=== PATIENT | female | born 1985 | race Caucasian/White ===

== ENCOUNTER 2018-04-01 08:45 | Inpatient (IN) | payer OTHER ==
[2018-04-01 10:16] VITALS: BMI 30.4
--- NOTE | 2018-04-01 11:41 | HP ---
CIWA Score - CIWA Score Nausea/Vomitin Muscle Tremors: 3 Anxiety: 3 Agitation: 2 Paroxysmal Sweats: 1-Minimal Palms Moist Orientation: 0-Oriented Tacttile Disturbances: 1-Very Mild Itch/Numbness Auditory Disturbances: 1-Very Mild Visual Disturbances: 1-Very Mild Sensitivity Headache: 2-Mild CIWA-Ar Total Score: 17 Admission ROS BHS - HPI Chief Complaint: i need help to stop drinking alcohol,marijuana Allergies/Adverse Reactions: Allergies Allergy/AdvReac Type Severity Reaction Status Date / Time No Known Allergies Allergy Verified 04/01/18 10:37 History of Present Illness: this 32 years old female with alcohol and marijuana dependence seeking detox, withdrawal symptom,last detox 3 years go in [place] ss/p mitral valve replacement in 2015 s/p left nephrectomy for kidney stone and infection in 2009 lacerations of right forearm seen in [facility] 1 weks ago seen in [place] today with incted left forearm with cellulitis started on keflex hepatitis c no treatment no significant period of sobriety Exam Limitations: No Limitations - Ebola screening Have you traveled outside of the country in the last 21 days: No Have you had contact with anyone from an Ebola affected area: No Have you been sick,other than usual withdrawal symptoms: No Do you have a fever: No - Review of Systems Constitutional: Loss of Appetite, Malaise, Night Sweats, Changes in sleep, Weakness EENT: reports: Nose Congestion Respiratory: reports: No Symptoms reported Cardiac: reports: Palpitations, Other (s/p mitrl valve replacement) GI: reports: Diarrhea, Nausea, Vomiting, Abdominal cramping : reports: No Symptoms Reported Musculoskeletal: reports: Back Pain, Muscle Pain Integumentary: reports: Dryness Neuro: reports: Headache, Tremors Endocrine: reports: No Symptoms Reported Hematology: reports: No Symptoms Reported Psychiatric: reports: No Sypmtoms Reported, Judgement Intact, Mood/Affect Appropiate, Orientated x3 (insomnia), Anxious, Depressed Patient History - Patient Medical History Hx Anemia: No Hx Asthma: No Hx Chronic Obstructive Pulmonary Disease (COPD): No Hx Cancer: No Hx Cardiac Disorders: No Hx Congestive Heart Failure: No Hx Hypertension: No Hx Hypercholesterolemia: No Hx Pacemaker: No HX Cerebrovascular Accident: No Hx Seizures: No Hx Dementia: No Hx Diabetes: No Hx Gastrointestinal Disorders: No Hx Liver Disease: No Hx Genitourinary Disorders: No Hx Sexually Transmitted Disorders: No Hx Renal Disease (ESRD): No Hx Thyroid Disease: No Hx Human Immunodeficiency Virus (HIV): No (2017 negative) Hx Hepatitis C: Yes (not treated) Hx Depression: Yes Hx Suicide Attempt: No Hx Bipolar Disorder: No Hx Schizophrenia: No Other Medical History: anxiety,insomnia,infected laceration of right forearm - Patient Surgical History Past Surgical History: Yes Hx Neurologic Surgery: No Hx Cataract Extraction: No Hx Cardiac Surgery: Yes (mitral valve replacement in 2016) Hx Lung Surgery: No Hx Breast Surgery: No Hx Breast Biopsy: No Hx Abdominal Surgery: No Hx Appendectomy: No Hx Cholecystectomy: No Hx Genitourinary Surgery: No Hx Section: No Hx Orthopedic Surgery: No Other Surgical History: sutured ound, right forearm x1 week/left nephrectomy in 2009 Anesthesia Reaction: No - PPD History Previous Implant?: Yes Documented Results: Negative w/o proof Implanted On Prior [facility] Admission?: No PPD to be Administered?: Yes - Smoking Cessation Smoking history: Current every day smoker Have you smoked in the past 12 months: Yes Aproximately how many cigarettes per day: 40 Hx Chewing Tobacco Use: No Initiated information on smoking cessation: Yes 'Breaking Loose' booklet given: 04/01/18 - Substances Abused Alcohol-whisky/been Route: Oral Frequency: Daily Amount used: 2-3 pts./2-6 pks. Age of first use: 12 Date of Last Use: 03/31/18 Marijuana Route: Smoking Frequency: Daily Amount used: $10 Age of first use: 12 Date of Last Use: 03/30/18 Family Disease History - Family Disease History Family Disease History: Other: Mother (dsa ) Admission Physical Exam S - Vital Signs Vital Signs: Vital Signs - 24 hr 04/01/18 10:03 Temperature 98.2 F Pulse Rate 99 H Respiratory 18 Rate Blood Pressure 144/95 - Physical General Appearance: Yes: Moderate Distress, Tremorous, Irritable, Sweating, Anxious HEENTM: Yes: Normal ENT Inspection, SARAH, Pharynx Normal Respiratory: Yes: Lungs Clear, Normal Breath Sounds, No Respiratory Distress Neck: Yes: Within Normal Limits, Supple, Trachea in good position Breast: Yes: Breast Exam Deferred Cardiology: Yes: Within Normal Limits, Regular Rhythm, Regular Rate, S1, S2, Surgical Scar (s/p enrike valve replacement) Abdominal: Yes: Normal Bowel Sounds, Non Tender, Flat, Soft, Organomegaly Genitourinary: Yes: Within Normal Limits, Other (s/p left nephrectomy) Back: Yes: Muscle Spasm Musculoskeletal: Yes: Within Normal Limits, Back pain, Muscle Pain Extremities: Yes: Tremors Neurological: Yes: twister tender paper II-XII NML intact, Fully Oriented, Alert, Motor Strength 5/5 Integumentary: Yes: Dry Lymphatic: Yes: Within Normal Limits - Diagnostic (1) Alcohol dependence with uncomplicated withdrawal Current Visit: Yes Status: Acute (2) Cannabis dependence Current Visit: Yes Status: Acute (3) H/O mitral valve replacement Current Visit: Yes Status: Acute (4) History of nephrectomy, unilateral Current Visit: Yes Status: Acute (5) Laceration of left forearm Current Visit: Yes Status: Acute (6) Cellulitis Current Visit: Yes Status: Acute (7) Hepatitis C Current Visit: Yes Status: Acute (8) Nicotine dependence Current Visit: Yes Status: Acute (9) Anxiety and depression Current Visit: Yes Status: Acute (10) Insomnia Current Visit: Yes Status: Acute Cleared for Admission [facility] - Detox or Rehab [facility] Level of Care: Medically Managed Detox Regimen/Protocol: Valium [facility] Breath Alcohol Content Breath Alcohol Content: 0 Urine Pregancy Test - Result Urine Test Results: Negative- NO Line Present Urine Drug Screen - Results Drug Screen Negative: No Urine Drug Screen Results: THC-Marijuana, BZO-Benzodiazepines
[2018-04-01] MEDS ORDERED: IBUPROFEN 400 MG TABLET (FP) PO PRN (12:02)
[2018-04-01] MEDS ORDERED: ACETAMINOPHEN 325 MG TABLET (FP) PO PRN (12:02)
[2018-04-01] MEDS ORDERED: guaiFENesin/D-METHORPHAN HB 10 ML UNIT-DOSE CUPS PO PRN (12:02)
[2018-04-01] MEDS ORDERED: MENTHOL/PHENOL 1 EACH UD MM PRN (12:02)
[2018-04-01] MEDS ORDERED: LOPERAMIDE HCL 2 MG CAPSULE PO PRN (12:02)
[2018-04-01] MEDS ORDERED: P-EPHED 60MG/TRIPROLIDI 2.5MG TABLET PO PRN (12:02)
[2018-04-01] MEDS ORDERED: MAG HYDROX/AL HYDROX/SIMETH 30 ML UNIT-DOSE CUP PO PRN (12:02)
[2018-04-01] MEDS ORDERED: NICOTINE POLACRILEX 2 MG GUM BUC PRN (12:02)
[2018-04-01] MEDS ORDERED: MAGNESIUM HYDROX 2400MG/30ML ORAL SUSPENSION 30 ML CUP PO PRN (12:02)
[2018-04-01] MEDS ORDERED: MAGNESIUM CITRATE 300 ML BOTTLE PO PRN (12:02)
[2018-04-01] MEDS ORDERED: diazePAM 5 MG TABLET PO ONE (12:30)
[2018-04-01] MEDS: NICOTINE 21 MG/24 HOURS TOPICAL PATCH TD SCH (12:37)
[2018-04-01] MEDS ORDERED: NAPROXEN 500 MG TABLET (FP) PO ONE (13:30)
[2018-04-01] MEDS: CEPHALEXIN MONOHYDRATE 500 MG CAPSULE (UD) PO SCH ×3 (13:39→22:04)
[2018-04-01] MEDS: diazePAM 5 MG TABLET PO SCH ×2 (13:39→22:04)
[2018-04-01 17:20] LABS: URINE APPEARANCE SLCLOUDY; URINE BILIRUBIN NEGATIVE (<2.0 mg/dL); URINE COLOR AMBER; URINE GLUCOSE (UA) NEGATIVE (NEGATIVE); URINE KETONE NEGATIVE (NEGATIVE); URINE LEUK ESTERASE NEGATIVE (NEGATIVE); URINE NITRITE NEGATIVE (NEGATIVE); URINE PROTEIN 3+ (NEGATIVE); URINE UROBILINOGEN 4.0 E.U/dl mg/dL (0.2-1.0)
[2018-04-01 17:31] LABS: EPI CELLS MODERATE /HPF (FEW)
[2018-04-01 17:52] LABS: INR 1.39 (0.83-1.09); PROTHROMBIN TIME (PATIENT) 16.5 SEC (9.7-13.0)
[2018-04-01] MEDS: diazePAM 5 MG TABLET PO PRN (18:11)
[2018-04-01] MEDS ORDERED: MELATONIN 5 MG TABLETS PO PRN (22:00)
[2018-04-01] MEDS: THIAMINE HCL 100 MG TABLET (FP) PO SCH (22:04)
[2018-04-01] MEDS: hydrOXYzine PAMOATE 50 MG CAPSULE (FP) PO PRN (22:04)
[2018-04-02 04:28] LABS: ALBUMIN 3.2 g/dl (3.4-5.0); ALK PHOS 112 U/L (45-117); ANION GAP 5 MMOL/L (8-16); BILIRUBIN,TOTAL 1.3 mg/dL (0.2-1); BLOOD UREA NITROGEN 10 mg/dL (7-18); CALCIUM 8.5 mg/dL (8.5-10.1); CHLORIDE 101 mmol/L (98-107); CO2 28 mmol/L (21-32); CREATININE 0.9 mg/dL (0.55-1.3); GLUCOSE,RANDOM 105 mg/dL (74-106); POTASSIUM 4.4 mmol/L (3.5-5.1); SGOT/AST 136 U/L (15-37); SGPT/ALT 141 U/L (13-61); SODIUM 134 mmol/L (136-145)
[2018-04-02] MEDS: diazePAM 5 MG TABLET PO SCH ×3 (06:22→22:58)
[2018-04-02] MEDS: PRENATAL VITAMINS W/ FOLIC ACID TABLET (FP) PO SCH (10:13)
[2018-04-02] MEDS: CEPHALEXIN MONOHYDRATE 500 MG CAPSULE (UD) PO SCH ×4 (10:13→22:58)
[2018-04-02] MEDS: NICOTINE 21 MG/24 HOURS TOPICAL PATCH TD SCH (10:13)
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
[2018-04-02] MEDS: diazePAM 5 MG TABLET PO PRN ×2 (10:15→17:53)
[2018-04-02 10:56] LABS: HEMATOCRIT 40.6 % (32.4-45.2); HEMOGLOBIN 13.1 GM/dL (10.7-15.3); MCH 30.1 pg (25.7-33.7); MCHC 32.3 g/dl (32.0-36.0); MEAN CELL VOLUME 93.1 fl (80-96); PLATELET COUNT 262 K/MM3 (134-434); RBC 4.36 M/mm3 (3.60-5.2); RDW 16.5 % (11.6-15.6); WHITE BLOOD COUNT 10.4 K/mm3 (4.0-10.0)
[2018-04-02] MEDS: hydrOXYzine PAMOATE 50 MG CAPSULE (FP) PO PRN ×2 (11:28→20:22)
[2018-04-02] MEDS: BACITRACIN 0.9 GM PACKET TP SCH (11:54)
--- NOTE | 2018-04-02 14:02 | PN ---
[facility] CIWA - CIWA Score Nausea/Vomitin-No Nausea/No Vomiting Muscle Tremors: None Anxiety: 4-Mod. Anxious/Guarded Agitation: 4-Moderately Restless Paroxysmal Sweats: No Perspiration Orientation: 0-Oriented Tacttile Disturbances: 2-Mild Itch/Numbness/Burn Auditory Disturbances: 0-None Visual Disturbances: 0-None Headache: 0-None Present CIWA-Ar Total Score: 10 S Progress Note (SOAP) Subjective: PATIENT ANXIOUS, PACING IN HALLWAY, BECAME IRRITABLE WITH HVAC LEAD WHEN HVAC LEAD INFORMED SHE WILL ADDRESS HER NEEDS AFTER MEETING WITH ANOTHER PATIENT. Objective: 04/02/18 14:04 Vital Signs Temperature 97.0 F L 04/02/18 09:30 Pulse Rate 75 04/02/18 09:30 Respiratory Rate 16 04/02/18 09:30 Blood Pressure 119/72 04/02/18 09:30 O2 Sat by Pulse Oximetry (%) Laboratory Tests 04/01/18 04/01/18 04/01/18 06:00 11:40 14:30 WBC RBC Hgb Hct MCV MCH MCHC RDW Plt Count MPV PT with INR INR Sodium 134 L Potassium 4.4 Chloride 101 Carbon Dioxide 28 Anion Gap 5 L BUN 10 Creatinine 0.9 Creat Clearance w eGFR > 60 Random Glucose 105 Calcium 8.5 Total Bilirubin 1.3 H AST 136 H ALT 141 H Alkaline Phosphatase 112 Total Protein 8.0 Albumin 3.2 L Urine Color [place] Urine Appearance Slcloudy Urine pH 8.0 Ur Specific [place] 1.019 Urine Protein 3+ H Urine Glucose (UA) Negative Urine Ketones Negative Urine Blood 1+ H Urine Nitrite Negative Urine Bilirubin Negative Urine Urobilinogen 4.0 e.u/dl H Ur Leukocyte Esterase Negative Urine WBC (Auto) 40-60 Urine RBC (Auto) 46 Ur Epithelial Cells Moderate RPR Titer HIV 1&2 Antibody Screen Negative HIV P24 Antigen Negative 04/01/18 04/02/18 04/02/18 14:30 06:00 06:00 WBC 10.4 H RBC 4.36 Hgb 13.1 Hct 40.6 MCV 93.1 MCH 30.1 MCHC 32.3 RDW 16.5 H Plt Count 262 MPV 10.0 PT with INR 16.50 H INR 1.39 H Sodium Potassium Chloride Carbon Dioxide Anion Gap BUN Creatinine Creat Clearance w eGFR Random Glucose Calcium Total Bilirubin AST ALT Alkaline Phosphatase Total Protein Albumin Urine Color Urine Appearance Urine pH Ur Specific [place] Urine Protein Urine Glucose (UA) Urine Ketones Urine Blood Urine Nitrite Urine Bilirubin Urine Urobilinogen Ur Leukocyte Esterase Urine WBC (Auto) Urine RBC (Auto) Ur Epithelial Cells RPR Titer Nonreactive HIV 1&2 Antibody Screen HIV P24 Antigen SKIN: WARM AND DRY. + SUTURES INTACT RIGHT FOREARM FROM LACERATION PRIOR TO ADMISSION. NO REDNESS, DISCHARGE OR SWELLING. PT ALERT AND ORIENTED AMB AD ABHINAV EXT FULL ROM Assessment: 04/02/18 14:06 WITHDRAWAL SYNDROME SUBTHERAPEUTIC PT/INR SUTURES Plan: CONTINUE DETOX ENCOURAGE ORAL FLUIDS BACITRACIN TO SUTURE SITE DAILY CONTINUE COUMADIN AND REPEAT PT/INR IN AM CONTINUE TO MONITOR CLINICALLY
[2018-04-02] MEDS ORDERED: WARFARIN NA 3 MG TABLET PO SCH (18:00)
[2018-04-02] MEDS: THIAMINE HCL 100 MG TABLET (FP) PO SCH (22:58)
[2018-04-03] MEDS: diazePAM 5 MG TABLET PO PRN ×5 (01:42→20:58)
[2018-04-03] MEDS: diazePAM 5 MG TABLET PO SCH ×2 (10:03→22:28)
[2018-04-03] MEDS: CEPHALEXIN MONOHYDRATE 500 MG CAPSULE (UD) PO SCH ×4 (10:03→22:28)
[2018-04-03] MEDS: BACITRACIN 0.9 GM PACKET TP SCH (10:04)
[2018-04-03] MEDS: PRENATAL VITAMINS W/ FOLIC ACID TABLET (FP) PO SCH (10:05)
[2018-04-03] MEDS: NICOTINE 21 MG/24 HOURS TOPICAL PATCH TD SCH (10:06)
[2018-04-03 10:18] LABS: INR 1.46 (0.83-1.09); PROTHROMBIN TIME (PATIENT) 17.3 SEC (9.7-13.0)
[2018-04-03] MEDS: hydrOXYzine PAMOATE 50 MG CAPSULE (FP) PO PRN (13:55)
--- NOTE | 2018-04-03 14:02 | PN ---
[facility] CIWA - CIWA Score Nausea/Vomitin-No Nausea/No Vomiting Muscle Tremors: 1-None Visible, but [place] Anxiety: 4-Mod. Anxious/Guarded Agitation: 4-Moderately Restless Paroxysmal Sweats: No Perspiration Orientation: 0-Oriented Tacttile Disturbances: 0-None Auditory Disturbances: 0-None Visual Disturbances: 0-None Headache: 0-None Present CIWA-Ar Total Score: 9 BHS Progress Note (SOAP) Subjective: ANXIOUS AND RESTLESS. MILD SHAKES Objective: 04/03/18 14:00 Vital Signs Temperature 97.3 F L 04/03/18 10:44 Pulse Rate 94 H 04/03/18 10:44 Respiratory Rate 18 04/03/18 10:44 Blood Pressure 131/87 04/03/18 10:44 O2 Sat by Pulse Oximetry (%) Laboratory Tests 04/01/18 04/01/18 04/01/18 06:00 11:40 14:30 WBC RBC Hgb Hct MCV MCH MCHC RDW Plt Count MPV PT with INR INR Sodium 134 L Potassium 4.4 Chloride 101 Carbon Dioxide 28 Anion Gap 5 L BUN 10 Creatinine 0.9 Creat Clearance w eGFR > 60 Random Glucose 105 Calcium 8.5 Total Bilirubin 1.3 H AST 136 H ALT 141 H Alkaline Phosphatase 112 Total Protein 8.0 Albumin 3.2 L Urine Color [place] Urine Appearance Slcloudy Urine pH 8.0 Ur Specific [place] 1.019 Urine Protein 3+ H Urine Glucose (UA) Negative Urine Ketones Negative Urine Blood 1+ H Urine Nitrite Negative Urine Bilirubin Negative Urine Urobilinogen 4.0 e.u/dl H Ur Leukocyte Esterase Negative Urine WBC (Auto) 40-60 Urine RBC (Auto) 46 Ur Epithelial Cells Moderate RPR Titer HIV 1&2 Antibody Screen Negative HIV P24 Antigen Negative 04/01/18 04/02/18 04/02/18 14:30 06:00 06:00 WBC 10.4 H RBC 4.36 Hgb 13.1 Hct 40.6 MCV 93.1 MCH 30.1 MCHC 32.3 RDW 16.5 H Plt Count 262 MPV 10.0 PT with INR 16.50 H INR 1.39 H Sodium Potassium Chloride Carbon Dioxide Anion Gap BUN Creatinine Creat Clearance w eGFR Random Glucose Calcium Total Bilirubin AST ALT Alkaline Phosphatase Total Protein Albumin Urine Color Urine Appearance Urine pH Ur Specific [place] Urine Protein Urine Glucose (UA) Urine Ketones Urine Blood Urine Nitrite Urine Bilirubin Urine Urobilinogen Ur Leukocyte Esterase Urine WBC (Auto) Urine RBC (Auto) Ur Epithelial Cells RPR Titer Nonreactive HIV 1&2 Antibody Screen HIV P24 Antigen 04/03/18 08:00 WBC RBC Hgb Hct MCV MCH MCHC RDW Plt Count MPV PT with INR 17.30 H INR 1.46 H Sodium Potassium Chloride Carbon Dioxide Anion Gap BUN Creatinine Creat Clearance w eGFR Random Glucose Calcium Total Bilirubin AST ALT Alkaline Phosphatase Total Protein Albumin Urine Color Urine Appearance Urine pH Ur Specific [place] Urine Protein Urine Glucose (UA) Urine Ketones Urine Blood Urine Nitrite Urine Bilirubin Urine Urobilinogen Ur Leukocyte Esterase Urine WBC (Auto) Urine RBC (Auto) Ur Epithelial Cells RPR Titer HIV 1&2 Antibody Screen HIV P24 Antigen IRRITABLE AND ANXIOUS ALERT AND ORIENTED X 3 SKIN WARM AND DRY EXT NO EDEMA, FULL ROM Assessment: 04/03/18 14:01 WITHDRAWAL SYNDROME Plan: CONTINUE DETOX ENCOURAGE ORAL FLUIDS CONTINUE TO MONITOR CLINICALLY
--- NOTE | 2018-04-03 17:33 | EKG ---
Test Reason : Blood Pressure : / mmHG Vent. Rate : 094 BPM Atrial Rate : 094 BPM P-R Int : 160 ms QRS Dur : 080 ms QT Int : 382 ms P-R-T Axes : 070 078 073 degrees QTc Int : 477 ms NORMAL SINUS RHYTHM POSSIBLE LEFT ATRIAL ENLARGEMENT BORDERLINE ECG NO PREVIOUS ECGS AVAILABLE CLINICAL CORRELATION IS RECOMMENDED Confirmed by GENET BENTON, MICHELLE ([id number]) on 04/03/2018 5:33:19 PM Referred By: Confirmed By:MICHELLE DE LEÓN MD
[2018-04-03] MEDS: WARFARIN NA 2 MG TABLET (UD) PO SCH (17:34)
[2018-04-03] MEDS: THIAMINE HCL 100 MG TABLET (FP) PO SCH (22:28)
[2018-04-04] MEDS: hydrOXYzine PAMOATE 50 MG CAPSULE (FP) PO PRN ×3 (00:37→12:09)
[2018-04-04] MEDS: diazePAM 5 MG TABLET PO PRN ×3 (02:33→11:15)
[2018-04-04] MEDS ORDERED: ACETAMINOPHEN 325 MG TABLET (FP) PO ONE (03:11)
[2018-04-04] MEDS ORDERED: BENZOCAINE 20 % GEL TUBE MM PRN (03:12)
[2018-04-04] MEDS ORDERED: ACETAMINOPHEN 325 MG TABLET (FP) PO PRN (03:15)
[2018-04-04] MEDS: BACITRACIN 0.9 GM PACKET TP SCH (09:10)
[2018-04-04] MEDS: diazePAM 5 MG TABLET PO SCH ×2 (09:11→22:49)
[2018-04-04] MEDS: CEPHALEXIN MONOHYDRATE 500 MG CAPSULE (UD) PO SCH ×4 (09:11→22:49)
[2018-04-04] MEDS: PRENATAL VITAMINS W/ FOLIC ACID TABLET (FP) PO SCH (09:11)
[2018-04-04] MEDS: NICOTINE 21 MG/24 HOURS TOPICAL PATCH TD SCH (09:13)
--- NOTE | 2018-04-04 15:36 | PN ---
[facility] Progress Note (SOAP) Subjective: patient was doing well throughout the detox regimen reported feeling better less sweat around 1532 patient stated that she has vagina pain and liver pain wants to go to the hospital for evaluation experienced anxiousness and feeling feverish trouble breathing and seeing Objective: 04/04/18 15:34 Vital Signs Temperature 97.9 F 04/04/18 10:40 Pulse Rate 103 H 04/04/18 10:40 Respiratory Rate 18 04/04/18 10:40 Blood Pressure 129/83 04/04/18 10:40 O2 Sat by Pulse Oximetry (%) Laboratory Last Values WBC 10.4 K/mm3 (4.0-10.0) H 04/02/18 06:00 RBC 4.36 M/mm3 (3.60-5.2) 04/02/18 06:00 Hgb 13.1 GM/dL (10.7-15.3) 04/02/18 06:00 Hct 40.6 % (32.4-45.2) 04/02/18 06:00 MCV 93.1 fl (80-96) 04/02/18 06:00 MCH 30.1 pg (25.7-33.7) 04/02/18 06:00 MCHC 32.3 g/dl (32.0-36.0) 04/02/18 06:00 RDW 16.5 % (11.6-15.6) H 04/02/18 06:00 Plt Count 262 K/MM3 (134-434) 04/02/18 06:00 MPV 10.0 fl (7.5-11.1) 04/02/18 06:00 PT with INR 17.30 SEC (9.7-13.0) H 04/03/18 08:00 INR 1.46 (0.83-1.09) H 04/03/18 08:00 Sodium 134 mmol/L (136-145) L 04/01/18 06:00 Potassium 4.4 mmol/L (3.5-5.1) 04/01/18 06:00 Chloride 101 mmol/L (98-107) 04/01/18 06:00 Carbon Dioxide 28 mmol/L (21-32) 04/01/18 06:00 Anion Gap 5 MMOL/L (8-16) L 04/01/18 06:00 BUN 10 mg/dL (7-18) 04/01/18 06:00 Creatinine 0.9 mg/dL (0.55-1.3) 04/01/18 06:00 Creat Clearance w eGFR > 60 (>60) 04/01/18 06:00 Random Glucose 105 mg/dL (74-106) 04/01/18 06:00 Calcium 8.5 mg/dL (8.5-10.1) 04/01/18 06:00 Total Bilirubin 1.3 mg/dL (0.2-1) H 04/01/18 06:00 AST 136 U/L (15-37) H 04/01/18 06:00 ALT 141 U/L (13-61) H 04/01/18 06:00 Alkaline Phosphatase 112 U/L (45-117) 04/01/18 06:00 Ammonia 60.10 umol/L (11-32) H 04/04/18 07:40 Total Protein 8.0 g/dl (6.4-8.2) 04/01/18 06:00 Albumin 3.2 g/dl (3.4-5.0) L 04/01/18 06:00 Urine Color [place] 04/01/18 14:30 Urine Appearance Slcloudy 04/01/18 14:30 Urine pH 8.0 (5.0-8.0) 04/01/18 14:30 Ur Specific [place] 1.019 (1.004-1.035) 04/01/18 14:30 Urine Protein 3+ (NEGATIVE) H 04/01/18 14:30 Urine Glucose (UA) Negative (NEGATIVE) 04/01/18 14:30 Urine Ketones Negative (NEGATIVE) 04/01/18 14:30 Urine Blood 1+ (NEGATIVE) H 04/01/18 14:30 Urine Nitrite Negative (NEGATIVE) 04/01/18 14:30 Urine Bilirubin Negative (<2.0 mg/dL) 04/01/18 14:30 Urine Urobilinogen 4.0 e.u/dl mg/dL (0.2-1.0) H 04/01/18 14:30 Ur Leukocyte Esterase Negative (NEGATIVE) 04/01/18 14:30 Urine WBC (Auto) 40-60 /hpf (3-5) 04/01/18 14:30 Urine RBC (Auto) 46 /hpf (0-3) 04/01/18 14:30 Ur Epithelial Cells Moderate /HPF (FEW) 04/01/18 14:30 RPR Titer Nonreactive (NONREACTIVE) 04/02/18 06:00 HIV 1&2 Antibody Screen Negative 04/01/18 11:40 HIV P24 Antigen Negative 04/01/18 11:40 lb noted Assessment: 04/04/18 15:35 mi;d withdrawal sx Plan: medically sueprvised detox
[2018-04-04] MEDS: WARFARIN NA 2 MG TABLET (UD) PO SCH (19:16)
[2018-04-04] MEDS ORDERED: ZOLPIDEM TARTRATE 5 MG TABLET PO ONE (20:31)
[2018-04-04] MEDS: THIAMINE HCL 100 MG TABLET (FP) PO SCH (22:49)
[2018-04-04] MEDS ORDERED: diazePAM 5 MG TABLET PO ONE (23:24)
[2018-04-05] MEDS ORDERED: diazePAM 5 MG TABLET PO ONE (05:37)
[2018-04-05] MEDS: hydrOXYzine PAMOATE 50 MG CAPSULE (FP) PO PRN ×2 (07:18→13:01)
[2018-04-05] MEDS ORDERED: hydrOXYzine PAMOATE 50 MG CAPSULE (FP) PO PRN (07:53)
--- NOTE | 2018-04-05 09:12 | PN ---
Psychiatric Progress Note Vital Signs: Vital Signs Period Temp Pulse Resp BP Sys/Lynn Pulse Ox Last 24 Hr 96.8 F-99.0 F 99-106 18-20 116-142/62-83 Date of Session: 04/05/18 Chief Complaint:: Anxietyand Irritability HPI: Patient is anxious, loud , demending orders for Ambien and Valium Current Medications: Active Medications Generic Name Dose Route Start Last Admin Trade Name Freq PRN Reason Stop Dose Admin Acetaminophen 650 mg 04/04/18 03:15 Tylenol - PO Q4H PRN PAIN OR FEVER Al Hydroxide/Mg Hydroxide 30 ml 04/01/18 12:02 Mylanta Oral Suspension - PO Q6H PRN DYSPEPSIA Bacitracin 0.9 gm 04/02/18 11:45 04/04/18 09:10 Bacitracin - TP 0.9 gm DAILY AKASH Administration Benzocaine 1 applic 04/04/18 03:12 Anbesol - MM Q2H PRN FOR TOOTHACHE Cephalexin HCl 500 mg 04/01/18 14:00 04/04/18 22:49 Keflex - PO 500 mg QID AKASH Administration Diazepam 5 mg 04/05/18 10:00 Valium - PO 04/05/18 10:01 DAILY AKASH Eucalyptus/Menthol/Phenol/Sorbitol 1 each 04/01/18 12:02 Cepastat Lozenge - MM Q4H PRN SORE THROAT Guaifenesin 10 ml 04/01/18 12:02 Robitussin Dm - PO Q6H PRN COUGH Hydroxyzine Pamoate 50 mg 04/01/18 12:02 04/05/18 07:18 Vistaril - PO 50 mg Q4H PRN Administration AGITATION Loperamide HCl 4 mg 04/01/18 12:02 Imodium - PO Q6H PRN DIARRHEA Magnesium Citrate 300 ml 04/01/18 12:02 Citroma - PO Q48H PRN CONSTIPATION Magnesium Hydroxide 30 ml 04/01/18 12:02 Milk Of Magnesia - PO DAILY PRN CONSTIPATION Nicotine 21 mg 04/01/18 12:15 04/04/18 09:13 Nicoderm Patch - TD 21 mg DAILY AKASH Administration Nicotine Polacrilex 2 mg 04/01/18 12:02 Nicorette Gum - BUC Q2H PRN NICOTINE REPLACEMENT RX Multivit/Folic Acid/Iron 1 tab 04/02/18 10:00 04/04/18 09:11 Vitamins (Sjr) - PO 1 tab DAILY AKASH Administration Pseudoephedrine/Triprolidine 1 combo 04/01/18 12:02 Actifed - PO TID PRN NASAL CONGESTION Thiamine HCl 100 mg 04/01/18 22:00 04/04/18 22:49 Vitamin B1 - PO 100 mg HS AKASH Administration Warfarin Sodium 8 mg 04/03/18 13:59 04/04/18 19:16 Coumadin - PO Not Given DAILY@1800 [facility] Zolpidem Tartrate 10 mg 04/05/18 22:00 Ambien - PO 04/08/18 21:59 HS PRN INSOMNIA Medication(s) Change(s): Ambien 10mg po qhs. Vistaril 50mg po prn q4 for anxiety Provider note:: Patient engaged in supportive psaychotherapy, anxious and irritable, but following direstions and agrees to continue outpatient substance abuse treatment plan. Srarted on : Ambien 10mg po qhs. Vistaril 50mg po prn q4 for anxiety Mental Status Exam - Mental Status Exam Alert and Oriented to: Person Cognitive Function: Fair Patient Appearance: Unkempt Mood: Anxious, Irritable Affect: Labile Patient Behavior: Restless Speech Pattern: Excessive Voice Loudness: Moderately Loud Thought Process: Goal Oriented Hallucinations: Denies Suicidal Ideation: Denies Homicidal Ideation: Denies Insight/Judgement: Fair Sleep: Difficulty falling asleep Appetite: Weight gain Muscle strength/Tone: Normal Gait/Station: Normal Additional Comments: Ambien 10mg po qhs. Vistaril 50mg po prn q4 for anxiety Psychiatric Treatment Plan - Problem List (1) H/O mitral valve replacement Current Visit: Yes (2) Hep C w/ coma, chronic Current Visit: Yes (3) Anxiety and depression Current Visit: Yes (4) Hepatitis C Current Visit: Yes (5) History of nephrectomy, unilateral Current Visit: Yes (6) Substance induced mood disorder Current Visit: Yes (7) Substance-induced sleep disorder Current Visit: Yes (8) Alcohol dependence with uncomplicated withdrawal Current Visit: No (9) Cannabis dependence Current Visit: No Initial treatment plan: Ambien 10mg po qhs. Vistaril 50mg po prn q4 for anxiety
[2018-04-05] MEDS: NICOTINE 21 MG/24 HOURS TOPICAL PATCH TD SCH (09:29)
[2018-04-05] MEDS: PRENATAL VITAMINS W/ FOLIC ACID TABLET (FP) PO SCH (09:32)
[2018-04-05] MEDS: CEPHALEXIN MONOHYDRATE 500 MG CAPSULE (UD) PO SCH ×2 (09:32→14:37)
[2018-04-05] MEDS: BACITRACIN 0.9 GM PACKET TP SCH (09:32)
[2018-04-05] MEDS ORDERED: diazePAM 5 MG TABLET PO SCH (10:00)
[2018-04-05 10:21] LABS: INR 1.39 (0.83-1.09); PROTHROMBIN TIME (PATIENT) 16.5 SEC (9.7-13.0)
--- NOTE | 2018-04-05 12:42 | DS ---
[facility] Detox Discharge Summary Admission Date: 04/01/18 Discharge Date: 04/05/18 - History Present History: Alcohol Dependence Additional Comments: 32 years old female admitted on 04/01/18 for alcohol iwthdrawal sx patient had completed the alcohol detox regimen today patien tis alert oriented no sicidal ideation is taking coumadin for mitroval replacement three years ago subtherapeutic level since admission effort to titrate up to therapeutic level patient refuses to be transferred to the medical unit for further treatment patient wants to [facility] reach out to her brother first bu t patient refused - Physical Exam Results Vital Signs: Vital Signs Temperature 99.0 F 04/05/18 09:32 Pulse Rate 98 H 04/05/18 09:32 Respiratory Rate 20 04/05/18 09:32 Blood Pressure 122/76 04/05/18 09:32 O2 Sat by Pulse Oximetry (%) Pertinent Admission Physical Exam Findings: opiate withdrawal sx Vital Signs Temperature 97.9 F 04/05/18 13:29 Pulse Rate 89 04/05/18 13:29 Respiratory Rate 20 04/05/18 13:29 Blood Pressure 119/76 04/05/18 13:29 O2 Sat by Pulse Oximetry (%) Laboratory Last Values WBC 10.4 K/mm3 (4.0-10.0) H 04/02/18 06:00 RBC 4.36 M/mm3 (3.60-5.2) 04/02/18 06:00 Hgb 13.1 GM/dL (10.7-15.3) 04/02/18 06:00 Hct 40.6 % (32.4-45.2) 04/02/18 06:00 MCV 93.1 fl (80-96) 04/02/18 06:00 MCH 30.1 pg (25.7-33.7) 04/02/18 06:00 MCHC 32.3 g/dl (32.0-36.0) 04/02/18 06:00 RDW 16.5 % (11.6-15.6) H 04/02/18 06:00 Plt Count 262 K/MM3 (134-434) 04/02/18 06:00 MPV 10.0 fl (7.5-11.1) 04/02/18 06:00 PT with INR 16.50 SEC (9.7-13.0) H 04/05/18 07:30 INR 1.39 (0.83-1.09) H 04/05/18 07:30 Sodium 134 mmol/L (136-145) L 04/01/18 06:00 Potassium 4.4 mmol/L (3.5-5.1) 04/01/18 06:00 Chloride 101 mmol/L (98-107) 04/01/18 06:00 Carbon Dioxide 28 mmol/L (21-32) 04/01/18 06:00 Anion Gap 5 MMOL/L (8-16) L 04/01/18 06:00 BUN 10 mg/dL (7-18) 04/01/18 06:00 Creatinine 0.9 mg/dL (0.55-1.3) 04/01/18 06:00 Creat Clearance w eGFR > 60 (>60) 04/01/18 06:00 Random Glucose 105 mg/dL (74-106) 04/01/18 06:00 Calcium 8.5 mg/dL (8.5-10.1) 04/01/18 06:00 Total Bilirubin 1.3 mg/dL (0.2-1) H 04/01/18 06:00 AST 136 U/L (15-37) H 04/01/18 06:00 ALT 141 U/L (13-61) H 04/01/18 06:00 Alkaline Phosphatase 112 U/L (45-117) 04/01/18 06:00 Ammonia 60.10 umol/L (11-32) H 04/04/18 07:40 Total Protein 8.0 g/dl (6.4-8.2) 04/01/18 06:00 Albumin 3.2 g/dl (3.4-5.0) L 04/01/18 06:00 Urine Color [place] 04/01/18 14:30 Urine Appearance Slcloudy 04/01/18 14:30 Urine pH 8.0 (5.0-8.0) 04/01/18 14:30 Ur Specific [place] 1.019 (1.004-1.035) 04/01/18 14:30 Urine Protein 3+ (NEGATIVE) H 04/01/18 14:30 Urine Glucose (UA) Negative (NEGATIVE) 04/01/18 14:30 Urine Ketones Negative (NEGATIVE) 04/01/18 14:30 Urine Blood 1+ (NEGATIVE) H 04/01/18 14:30 Urine Nitrite Negative (NEGATIVE) 04/01/18 14:30 Urine Bilirubin Negative (<2.0 mg/dL) 04/01/18 14:30 Urine Urobilinogen 4.0 e.u/dl mg/dL (0.2-1.0) H 04/01/18 14:30 Ur Leukocyte Esterase Negative (NEGATIVE) 04/01/18 14:30 Urine WBC (Auto) 40-60 /hpf (3-5) 04/01/18 14:30 Urine RBC (Auto) 46 /hpf (0-3) 04/01/18 14:30 Ur Epithelial Cells Moderate /HPF (FEW) 04/01/18 14:30 RPR Titer Nonreactive (NONREACTIVE) 04/02/18 06:00 HIV 1&2 Antibody Screen Negative 04/01/18 11:40 HIV P24 Antigen Negative 04/01/18 11:40 lab noted patient understands the consequences of low level INR discuss risks of blood clot related medical issues patient verbalized understanding patient agrees to return home to own doctor - Treatment Hospital Course: Detox Protocol Followed, Detoxed Safely, Responded well, Discharged Condition Good, Rehab Referral Accepted Patient has Accepted a Rehab Referral to: [facility] - Medication Discharge Medications: Ambulatory Orders Cephalexin [Keflex] 500 mg PO QID #10 capsule 04/04/18 Warfarin Sodium [Coumadin] 9 mg PO DAILY #7 tablet 04/05/18 - Diagnosis (1) Alcohol dependence with uncomplicated withdrawal Status: Acute (2) Hepatitis C Status: Resolved Qualifiers: Viral hepatitis chronicity: unspecified Hepatic coma status: without hepatic coma Qualified Code(s): B19.20 - Unspecified viral hepatitis C without hepatic coma (3) Nicotine dependence Status: Acute Qualifiers: Nicotine product type: cigarettes Substance use status: in withdrawal Qualified Code(s): F17.213 - Nicotine dependence, cigarettes, with withdrawal (4) Substance induced mood disorder Status: Suspected - AMA Did Patient Leave Against Medical Advice: Yes
[2018-04-05 13:30] VITALS: BP 119/76; PULSE 89; TEMP 97.9
[2018-04-05] MEDS ORDERED: cloNIDine HCL 0.1 MG TABLET PO ONE (14:57)
--- NOTE | 2018-04-05 16:29 | PN ---
[facility] Progress Note Note: Patient has a history of mitral valve replacement three years ago, today's labs noted that her INR was sub-therapeutic. SHe was sent to the [facility] ED and released back to us with her current INR profile. We have cancelled her discharge and explained that she needs to be sent back to [facility] ED for further evaluation of her INR/Coumadin regimen etc. We explained that she is at high risk of clot/stroke, even . She understands this and is choosing to leave AMA. Every attempt made by the IDT to reach out to her family members to involve family with her decision making as she seems to have capacity to make decisions.
[2018-04-05] MEDS ORDERED: WARFARIN NA 3 MG TABLET PO SCH (18:00)
[2018-04-05] MEDS ORDERED: ZOLPIDEM TARTRATE 10 MG TABLET (PARK CARE ONLY) PO PRN (22:00)
== END 2018-04-05 16:30 | disposition left against medical advice (07) | DRG 770 ==
LOC: YASAS 08:45 → Y6N 11:24
PROC: HZ2ZZZZ Detoxification Services for Substance Abuse Treatment (ICD-10-PCS; principal; 2018-04-01)
DX: F10.230 Alcohol dependence with withdrawal, uncomplicated (principal); F12.20 Cannabis dependence, uncomplicated; F17.213 Nicotine dependence, cigarettes, with withdrawal; F19.24 Other psychoactive substance dependence with psychoactive substance-induced mood disorder; F19.282 Other psychoactive substance dependence with psychoactive substance-induced sleep disorder; F41.8 Other specified anxiety disorders; G47.00 Insomnia, unspecified; B18.2 Chronic viral hepatitis C; L03.114 Cellulitis of left upper limb; Z95.2 Presence of prosthetic heart valve; Z90.5 Acquired absence of kidney; Z79.01 Long term (current) use of anticoagulants
CPT/HCPCS: 36415; 80053; 81003; 81015; 82140; 85027; 85610; 86593; 87389; 93005; 93010; J0735

== ENCOUNTER 2018-04-04 16:11 | Emergency (ER) | payer OTHER ==
[2018-04-04 17:07] VITALS: BP 94/53; PULSE 101; TEMP 98.7; BMI 31.2
[2018-04-04] MEDS ORDERED: ACETAMINOPHEN 650 MG/20.3 ML ORAL SOLUTION (CUPS) PO ONE (17:14)
[2018-04-04] MEDS ORDERED: ACETAMINOPHEN 325 MG TABLET (FP) ONE (17:15)
[2018-04-04 17:40] LABS: URINE APPEARANCE SLCLOUDY; URINE BILIRUBIN NEGATIVE (<2.0 mg/dL); URINE COLOR YELLOW; URINE GLUCOSE (UA) NEGATIVE (NEGATIVE); URINE KETONE NEGATIVE (NEGATIVE); URINE LEUK ESTERASE 1+ (NEGATIVE); URINE NITRITE NEGATIVE (NEGATIVE); URINE PROTEIN 1+ (NEGATIVE); URINE UROBILINOGEN NEGATIVE mg/dL (0.2-1.0)
[2018-04-04 17:47] LABS: EPI CELLS RARE /HPF (FEW)
[2018-04-04] MEDS ORDERED: diazePAM 5 MG TABLET PO ONE (18:02)
--- NOTE | 2018-04-04 18:05 | PDOC ---
History of Present Illness <Aure Carcamo - Last Filed: 04/04/18 18:41> - General History Source: Patient Exam Limitations: No Limitations - History of Present Illness Initial Comments: 04/04/18 18:08 The patient is a 32 year old female, with a significant past medical history of mitral valve replacement in 2015 (on Coumadin), left nephrectomy for kidney stone and infection in 2009, and lacerations of right forearm sustained 2 weeks ago and started on Keflex 1 week ago for localized cellulitis, Hepatitis C (no treatment), and ETOH/Marijuana dependence coming from [facility], with complaint of 5 days with non radiating right flank pain without any associated urinary symptoms. She reports her pain is 10/10. She states she started her menstrual period about 3 days ago. She denies any noticeable hematuria prior to starting her MP. The patient denies chest pain, shortness of breath, headache and dizziness. The patient denies fever, chills, nausea, vomit, diarrhea and constipation. The patient denies dysuria, frequency, urgency and hematuria. Allergies: NKDA Past surgical history: left nephrectomy, mitral valve replacement <Ashley Marcos - Last Filed: 04/04/18 18:57> - General Chief Complaint: Back Pain Stated Complaint: BACK PAIN Time Seen by Provider: 04/04/18 16:33 Past History - Past Medical History Anemia: No Asthma: No Cancer: No Cardiac Disorders: No CVA: No COPD: Yes CHF: No Dementia: No Diabetes: No GI Disorders: No Disorders: No HTN: No Hypercholesterolemia: No Kidney Stones: Yes Liver Disease: No Seizures: No Thyroid Disease: No - Surgical History Abdominal Surgery: No Appendectomy: No Cardiac Surgery: Yes (mitral valve replacement in 2015) Cholecystectomy: No Lung Surgery: No Neurologic Surgery: No Orthopedic Surgery: No - Suicide/Smoking/Psychosocial Hx Smoking History: Former smoker Have you smoked in the past 12 months: Yes Number of Cigarettes Smoked Daily: 40 Information on smoking cessation initiated: Yes 'Breaking Loose' booklet given: 04/01/18 Hx Substance Use Treatment: Yes <Aure Carcamo - Last Filed: 04/04/18 18:41> <Ashley Marcos - Last Filed: 04/04/18 18:57> - Past Medical History Allergies/Adverse Reactions: Allergies Allergy/AdvReac Type Severity Reaction Status Date / Time No Known Allergies Allergy Verified 04/04/18 16:33 Home Medications: Ambulatory Orders Warfarin Sodium [Coumadin] 6 mg PO DAILY 04/01/18 Cephalexin [Keflex] 500 mg PO QID #10 capsule 04/04/18 Trauma Specific PMHX - Complaint Specific PMHX Arthritis: No <Carlos AlbertoJosebelgica Najerah - Last Filed: 04/04/18 18:41> Review of Systems - Review of Systems Able to Perform ROS?: Yes Comments:: 04/04/18 18:08 CONSTITUTIONAL: Absent: fever, chills, fatigue EYES: Absent: visual changes ENT: Absent: ear pain, sore throat CARDIOVASCULAR: Absent: chest pain, palpitations RESPIRATORY: Absent: cough, SOB GI: Absent: abdominal pain, nausea, vomiting, constipation, diarrhea GENITOURINARY: Absent: dysuria, frequency, hematuria MUSCULOSKELETAL: (+) right flank pain. Absent: back pain, arthralgia, myalgia SKIN: Absent: rash NEURO: Absent: headache <Ashley Marcos - Last Filed: 04/04/18 18:57> *Physical Exam - Vital Signs Last Vital Signs Temp Pulse Resp BP Pulse Ox 98.7 F 101 H 18 94/53 L 100 04/04/18 16:17 04/04/18 16:17 04/04/18 16:17 04/04/18 16:17 04/04/18 16:17 <Aure Carcamo - Last Filed: 04/04/18 18:41> - Vital Signs Last Vital Signs Temp Pulse Resp BP Pulse Ox 98.7 F 101 H 18 94/53 L 100 04/04/18 16:17 04/04/18 16:17 04/04/18 16:17 04/04/18 16:17 04/04/18 16:17 - Physical Exam Comments: 04/04/18 18:19 GENERAL: Well developed, well nourished. Awake and alert. No acute distress. HEENT: Normocephalic, atraumatic. PERRLA, EOMI. No conjunctival pallor. Sclera are non- icteric. Moist mucous membranes. Oropharynx is clear. NECK: Supple. Full ROM. No JVD. Carotid pulses 2+ and symmetric, without bruits. No thyromegaly. No lymphadenopathy. CARDIOVASCULAR: Regular rate and rhythm. No murmurs, rubs, or gallops. Distal pulses are 2+ and symmetric. PULMONARY: No evidence of respiratory distress. Lungs clear to auscultation bilaterally. No wheezing, rales or rhonchi. ABDOMINAL: Soft. Non-tender. Non-distended. No rebound or guarding. No organomegaly. Normoactive bowel sounds. MUSCULOSKELETAL (+) mild right paraspinal muscle tenderness to palpations. Normal range of motion at all joints. No bony deformities or tenderness. No CVA tenderness. EXTREMITIES: No cyanosis. No clubbing. No edema. No calf tenderness. SKIN: (+) two lacerations of the right forearm well approximated with mild localized tenderness and erythema. No streaking or signs of cellulitis. 11 sutures to one laceration and 15 sutures to another were removed today. Warm and dry. Normal capillary refill. No rashes. No jaundice. NEUROLOGICAL: Alert, awake, appropriate. Cranial nerves 2-12 intact. Normoreflexic in the upper and lower extremities. Normal speech. Toes are down-going bilaterally. Gait is normal without ataxia. PSYCHIATRIC: Cooperative. Good eye contact. Appropriate mood and affect. <Ashley Marcos - Last Filed: 04/04/18 18:57> ED Treatment Course - ADDITIONAL ORDERS Additional order review: Laboratory Results 04/04/18 17:15 Urine Color Yellow Urine Appearance Slcloudy Urine pH 7.0 Ur Specific [place] 1.010 Urine Protein 1+ H D Urine Glucose (UA) Negative Urine Ketones Negative Urine Blood 3+ H Urine Nitrite Negative Urine Bilirubin Negative Urine Urobilinogen Negative Ur Leukocyte Esterase 1+ H Urine WBC (Auto) 124 Urine RBC (Auto) 283 Ur Epithelial Cells Rare - Medications Given in the ED: ED Medications Discontinued Medications Generic Name Dose Route Start Last Admin Trade Name Freq PRN Reason Stop Dose Admin Acetaminophen 650 mg 04/04/18 17:14 04/04/18 17:17 Tylenol Oral Solution - PO 04/04/18 17:15 Not Given ONCE ONE <Aure Carcamo - Last Filed: 04/04/18 18:41> - ADDITIONAL ORDERS Additional order review: Laboratory Results 04/04/18 17:15 Urine Color Yellow Urine Appearance Slcloudy Urine pH 7.0 Ur Specific [place] 1.010 Urine Protein 1+ H D Urine Glucose (UA) Negative Urine Ketones Negative Urine Blood 3+ H Urine Nitrite Negative Urine Bilirubin Negative Urine Urobilinogen Negative Ur Leukocyte Esterase 1+ H Urine WBC (Auto) 124 Urine RBC (Auto) 283 Ur Epithelial Cells Rare - Medications Given in the ED: ED Medications Discontinued Medications Generic Name Dose Route Start Last Admin Trade Name Devante PRN Reason Stop Dose Admin Acetaminophen 650 mg 04/04/18 17:14 04/04/18 17:17 Tylenol Oral Solution - PO 04/04/18 17:15 Not Given ONCE ONE <Ashley Marcos - Last Filed: 04/04/18 18:57> Medical Decision Making - Medical Decision Making 04/04/18 18:04 I did call primary care and spoke to the nurse who said that she is not come back to [facility]. However, in reviewing the notes by the nurse in the computer. There is no discharge seen. Patient is not aware of this plan. I tried multiple times to contact Dr. cohen and noticed picking up. Patient's has sutures that were placed several weeks ago and has some localized erythema and has been placed on Keflex because of it. SUTURES were removed from the lacerations. <Aure Carcamo - Last Filed: 04/04/18 18:41> - Medical Decision Making 04/04/18 18:14 Dr. Fontenot was called and the patient's case was discussed. He states the patient is not discharged from [facility] and says the patient can go back to [facility] once discharged from the ED. <Ashley Marcos - Last Filed: 04/04/18 18:57> *DC/Admit/Observation/Transfer <Aure Carcamo - Last Filed: 04/04/18 18:41> - Attestations Scribe Attestion: 04/04/18 18:08 Documentation prepared by Ashley Marcos, acting as director of medical education for Aure Carcamo MD <Ashley Marcos - Last Filed: 04/04/18 18:57> Diagnosis at time of Disposition: Cannabis dependence, Alcohol dependence with uncomplicated withdrawal Laceration of left forearm Qualifiers: Encounter type: subsequent encounter Qualified Code(s): S51.812D - Laceration without foreign body of left forearm, subsequent encounter - Discharge Dispostion Disposition: HOME Condition at time of disposition: Stable - Patient Instructions Printed Discharge Instructions: DI for Suture Removal Additional Instructions: apply bacitracin twice daily
[2018-04-04] MEDS ORDERED: diazePAM 5 MG TABLET ONE (18:34)
== END 2018-04-04 19:48 | disposition home or self-care (01) ==
LOC: JER 16:11
DX: F10.230 Alcohol dependence with withdrawal, uncomplicated (principal); F12.20 Cannabis dependence, uncomplicated; S51.812D Laceration without foreign body of left forearm, subsequent encounter; Z48.02 Encounter for removal of sutures; Z95.2 Presence of prosthetic heart valve; Z79.01 Long term (current) use of anticoagulants; B18.2 Chronic viral hepatitis C; L03.114 Cellulitis of left upper limb; Z90.5 Acquired absence of kidney; X58.XXXA Exposure to other specified factors, initial encounter; Y93.89 Activity, other specified; Y92.89 Other specified places as the place of occurrence of the external cause; Y99.8 Other external cause status
CPT/HCPCS: 81003; 81015; 99282-25

== ENCOUNTER 2019-01-07 15:04 | Inpatient (IN) | payer OTHER ==
[2019-01-07 18:42] VITALS: BMI 32.4
--- NOTE | 2019-01-07 21:11 | HP ---
CIWA Score - Admission Criteria [facility]ASAS Guidelines: Admission for Medically Managed Detox: Requires at least one of the followin. CIWA greater than 12 2. Seizures within the past 24 hours 3. Delirium tremens within the past 24 hours 4. Hallucinations within the past 24 hours 5. Acute intervention needed for co occurring medical disorder 6. Acute intervention needed for co occurring psychiatric disorder 7. Severe withdrawal that cannot be handled at a lower level of care (continued vomiting, continued diarrhea, abnormal vital signs) requiring intravenous medication and/or fluids 8. Admission ROS S - HPI Chief Complaint: Here for rehab. I just completed alcohol detox. Allergies/Adverse Reactions: Allergies Allergy/AdvReac Type Severity Reaction Status Date / Time Fish Containing Products Allergy Intermediate Swelling Verified 01/07/19 18:25 History of Present Illness: 33 yo presents for rehab post detox @ [place]. Mandated into treatment. Has legal issues w/ Child Protective Services. fell 3 weeks ago and sustained injury to (R) rib areas. Told x-rays were ok. continues to have pain in (R) chest area. Stopped heroin 5 years ago. Stopped Crack 3 years ago. Alcohol use began at age 16. Last drink 01/02/19. Nicotine use began at age 12. Current use is 1/2 PPD. Marijuana use began at age 15. Utox: + THC/BZO HCG: Neg LUCAS: 0 PMHx: Mitral Valve Replacement - on coumadin; (L) nephrectomy; hemorrhoids; 04/01/18; Hx abnormal EKG MHHx: Insomnia, Anxiety, depression, bi-polar, schizophrenia. On meds. (ATIVAN, AMBIEN) [facility] has no MH Provider. [facility] has an appointment in January. Denies thoughts of harming self or others. Patient Name: Mei Lr Date: 1985 Address: [address] [place] [address] Sex: Female Rx Written Rx Dispensed Drug Quantity Days Supply Prescriber Name 01/01/2019 01/01/2019 tramadol hcl 50 mg tablet 12 3 Selvin Pratt P, MD Patient Name: Mei Lr Date: 1985 Address: [place] [address] Sex: Female Rx Written Rx Dispensed Drug Quantity Days Supply Prescriber Name 08/02/2018 08/02/2018 oxycodone-acetaminophen 5-325 mg tablet 5 1 Tristan Luciano Exam Limitations: No Limitations - Ebola screening Have you traveled outside of the country in the last 21 days: No (N) Have you had contact with anyone from an Ebola affected area: No Have you been sick,other than usual withdrawal symptoms: No (Denies recent exposure to measles. ) Do you have a fever: No - Review of Systems Constitutional: Changes in sleep (Difficulty falling and staying asleep) EENT: reports: Dental Problems (Missing teeth. Chews and swallows ok.) Respiratory: reports: No Symptoms reported Cardiac: reports: Other (Mitral valve replaced) GI: reports: Diarrhea (soft/liquidy brownish), Other (Hx hemorrhoids w/ occ blood streaks.) : reports: No Symptoms Reported Musculoskeletal: reports: Other ((R) flank/rib muscle dull pain r/t fall. Occurs w/ certain movements and when laying on (R) side.) Integumentary: reports: No Symptoms Reported Neuro: reports: Headache (Temportal - achy mild) Endocrine: reports: No Symptoms Reported Hematology: reports: No Symptoms Reported Psychiatric: reports: Judgement Intact, Mood/Affect Appropiate, Orientated x3, Agitated, Anxious (Takes prescribed Xanax.), Depressed (Denies thoughts of harming self or others.) Patient History - Patient Medical History Hx Anemia: No Hx Asthma: No Hx Chronic Obstructive Pulmonary Disease (COPD): Yes Hx Cancer: No Hx Cardiac Disorders: No Hx Congestive Heart Failure: No Hx Hypertension: No Hx Hypercholesterolemia: No Hx Pacemaker: No HX Cerebrovascular Accident: No Hx Seizures: No Hx Dementia: No Hx Diabetes: No Hx Gastrointestinal Disorders: No Hx Liver Disease: No Hx Genitourinary Disorders: No Hx Sexually Transmitted Disorders: No Hx Renal Disease (ESRD): No Hx Thyroid Disease: No Hx Human Immunodeficiency Virus (HIV): No Hx Hepatitis C: Yes (not treated) Hx Depression: Yes Hx Suicide Attempt: No Hx Bipolar Disorder: No Hx Schizophrenia: No - Patient Surgical History Past Surgical History: Yes Hx Neurologic Surgery: No Hx Cataract Extraction: No Hx Cardiac Surgery: Yes (mitral valve replacement in 2016) Hx Lung Surgery: No Hx Breast Surgery: No Hx Breast Biopsy: No Hx Abdominal Surgery: No Hx Appendectomy: No Hx Cholecystectomy: No Hx Genitourinary Surgery: No Hx Section: No Hx Orthopedic Surgery: No Other Surgical History: sutured ound, right forearm x1 week/left nephrectomy in 2010 Anesthesia Reaction: No - PPD History Previous Implant?: Yes Documented Results: Negative w/proof Implanted On Prior [facility] Admission?: Yes Date: 04/03/18 PPD to be Administered?: No - Reproductive History Patient is a Female of Child Bearing Age (11 -55 yrs old): Yes Last Menstrual Period: 01/06/19 Patient : No - Smoking Cessation Smoking history: Current every day smoker Have you smoked in the past 12 months: Yes Aproximately how many cigarettes per day: 10 Hx Chewing Tobacco Use: No Initiated information on smoking cessation: Yes 'Breaking Loose' booklet given: 01/07/19 - Substance & Tx. History Hx Alcohol Use: Yes Hx Substance Use: Yes Substance Use Type: Alcohol, Cocaine, Heroin, Marijuana Hx Substance Use Treatment: Yes (detox, ) - Substances abused Alcohol Substance route: Oral Frequency: Daily Amount used: 2 liter of vodka Age of first use: 15 Date of last use: 01/02/19 Family Disease History - Family Disease History Family Disease History: Other: Mother (dsa ) Admission Physical Exam [facility] - Vital Signs Vital Signs: Vital Signs - 24 hr 01/07/19 18:38 Temperature 0 F L Pulse Rate 105 H Respiratory 20 Rate Blood Pressure 121/76 - Physical General Appearance: Yes: Nourished, Anxious HEENTM: Yes: EOMI (Jerking movement of eyes on lateral gaze), Hearing grossly Normal, Normocephalic, Normal Voice, SARAH, Pharynx Normal Respiratory: Yes: Lungs Clear, Normal Breath Sounds, No Respiratory Distress Neck: Yes: No masses,lesions,Nodules, Supple Breast: Yes: Breast Exam Deferred Cardiology: Yes: Regular Rhythm, Regular Rate, S1, S2, Murmur Abdominal: Yes: Normal Bowel Sounds, Non Tender, Soft, Protuberent (Increased abdominal adiposity) Genitourinary: Yes: Within Normal Limits Back: Yes: Normal Inspection Musculoskeletal: Yes: full range of Motion, Gait Steady, Other (Ni increased erythema, warmth, swelling, induration (R) flank/rib area) Extremities: Yes: Normal Capillary Refill, Normal Range of Motion Neurological: Yes: manager competitive intelligence II-XII NML intact (Jerking movement of eyes on lateral gaze), Fully Oriented, Alert, Motor Strength 5/5, Normal Response Integumentary: Yes: Normal Color, Warm, Other (Thickened toenails and cracked skin on feet and between toes) Lymphatic: Yes: Within Normal Limits - Diagnostic (1) Tinea pedis Current Visit: Yes Status: Acute Qualifiers: Laterality: bilateral Qualified Code(s): B35.3 - Tinea pedis (2) Cannabis dependence Current Visit: Yes Status: Chronic (3) H/O mitral valve replacement Current Visit: Yes Status: Chronic (4) History of nephrectomy, unilateral Current Visit: Yes Status: Chronic (5) Nicotine dependence Current Visit: Yes Status: Chronic Qualifiers: Nicotine product type: cigarettes Substance use status: in withdrawal Qualified Code(s): F17.213 - Nicotine dependence, cigarettes, with withdrawal (6) Moderate alcohol dependence in early remission Current Visit: Yes Status: Acute (7) Rib pain on right side Current Visit: Yes Status: Acute Comment: Pain x 2 weeks. No hx fracture Cleared for Admission [facility] - Detox or Rehab Claeared for Rehab Admission: Yes Breathalyzer - Breathalyzer Breathalyzer: 0 Urine Drug Screen - Test Device Lot number: [id number] Expiration date: 10/26/20 - Control Is test valid?: Yes - Results Drug screen NEGATIVE: No Urine drug screen results: THC-Marijuana, BZO-Benzodiazepines Inpatient Rehab Admission - Rehab Decision to Admit Inpatient rehab admission?: Yes - Initial Determination Are CD services needed?: Yes Free of communicable disease: Yes Not in need of hospitalization: Yes - Rehab Admission Criteria Previous failed treatment: Yes Poor recovery environment: Yes Comorbidities: Yes Lacks judgement: No Patient is meeting Inpatient Rehab admission criteria:: Yes
[2019-01-07] MEDS ORDERED: P-EPHED 60MG/TRIPROLIDI 2.5MG TABLET PO PRN (21:52)
[2019-01-07] MEDS ORDERED: MENTHOL/PHENOL 1 EACH UD MM PRN (21:52)
[2019-01-07] MEDS ORDERED: MAG HYDROX/AL HYDROX/SIMETH 30 ML UNIT-DOSE CUP PO PRN (21:52)
[2019-01-07] MEDS ORDERED: LOPERAMIDE HCL 2 MG CAPSULE PO PRN (21:52)
[2019-01-07] MEDS ORDERED: guaiFENesin 200 MG/10 ML 10 ML UNIT-DOSE CUPS PO PRN (21:52)
[2019-01-07] MEDS ORDERED: MAGNESIUM CITRATE 300 ML BOTTLE PO PRN (21:52)
[2019-01-07] MEDS: THIAMINE HCL 100 MG TABLET (FP) PO SCH (22:51)
[2019-01-07] MEDS: WARFARIN NA 5 MG TABLET (UD) PO SCH (22:51)
[2019-01-07] MEDS: MELATONIN 5 MG TABLETS PO PRN (22:53)
[2019-01-07] MEDS: hydrOXYzine PAMOATE 50 MG CAPSULE (FP) PO PRN (22:53)
[2019-01-07] MEDS: TOLNAFTATE 1% CREAM 15 GM TUBE TP SCH (22:55)
[2019-01-08] MEDS: hydrOXYzine PAMOATE 50 MG CAPSULE (FP) PO PRN ×4 (06:30→21:09)
[2019-01-08] MEDS: MAGNESIUM HYDROX 2400MG/30ML ORAL SUSPENSION 30 ML CUP PO PRN (08:50)
[2019-01-08] MEDS: ACETAMINOPHEN 325 MG TABLET (FP) PO PRN (08:51)
[2019-01-08] MEDS: PRENATAL VITAMINS W/ FOLIC ACID TABLET (FP) PO SCH (09:21)
[2019-01-08] MEDS: NICOTINE 14 MG/24 HOURS TOPICAL PATCH TD SCH (09:22)
[2019-01-08] MEDS: TOLNAFTATE 1% CREAM 15 GM TUBE TP SCH ×2 (09:22→21:09)
--- NOTE | 2019-01-08 09:31 | EKG ---
Test Reason : Blood Pressure : / mmHG Vent. Rate : 090 BPM Atrial Rate : 090 BPM P-R Int : 180 ms QRS Dur : 086 ms QT Int : 372 ms P-R-T Axes : 069 069 066 degrees QTc Int : 455 ms NORMAL SINUS RHYTHM NORMAL ECG WHEN COMPARED WITH ECG OF 01-APR-2018 11:52, NO SIGNIFICANT CHANGE WAS FOUND Confirmed by MARCELO ALICIA MD ([id number]) on 01/08/2019 9:31:33 AM Referred By: Confirmed By:MARCELO ALICIA MD
[2019-01-08 10:29] LABS: ALBUMIN 3.3 g/dl (3.4-5.0); BILIRUBIN,TOTAL 0.3 mg/dL (0.2-1); BLOOD UREA NITROGEN 13.5 mg/dL (7-18); CREATININE 0.8 mg/dL (0.55-1.3); POTASSIUM 4.5 mmol/L (3.5-5.1); TOT PROT 8.4 g/dl (6.4-8.2)
[2019-01-08 10:46] LABS: HEMATOCRIT 41.6 % (32.4-45.2); HEMOGLOBIN 13.8 GM/dL (10.7-15.3); MCH 31.1 pg (25.7-33.7); MCHC 33.3 g/dl (32.0-36.0); MEAN CELL VOLUME 93.5 fl (80-96); RBC 4.45 M/mm3 (3.60-5.2); RDW 16.7 % (11.6-15.6); WHITE BLOOD COUNT 11.8 K/mm3 (4.0-10.0)
[2019-01-08 11:01] LABS: PLATELET COUNT 283 K/MM3 (134-434)
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
[2019-01-08] MEDS: KETOROLAC TROMETHAMINE 10 MG TABLET PO PRN (12:04)
[2019-01-08 12:06] LABS: EPI CELLS 10.2 /HPF (0-5/HPF); HYALINE CASTS 1 /lpf (0-8); PH,URINE 5.5 (5.0-8.0); URINE APPEARANCE CLOUDY; URINE BACTERIA 105.5 /hpf (NEGATIVE); URINE BILIRUBIN NEGATIVE (NEGATIVE); URINE COLOR YELLOW; URINE GLUCOSE (UA) NEGATIVE (NEGATIVE); URINE KETONE NEGATIVE (NEGATIVE); URINE LEUK ESTERASE 1+ (NEGATIVE); URINE NITRITE NEGATIVE (NEGATIVE); URINE PROTEIN 1+ (NEGATIVE); URINE RBC 4 /hpf (0-4); URINE WBC 6 /hpf (0-5)
[2019-01-08] MEDS: GABAPENTIN 300 MG CAPSULE (FP) PO SCH ×2 (13:01→21:09)
[2019-01-08 13:42] LABS: INR 1.59 (0.83-1.09); PROTHROMBIN TIME (PATIENT) 18.8 SEC (9.7-13.0)
[2019-01-08] MEDS: WARFARIN NA 5 MG TABLET (UD) PO SCH (18:30)
[2019-01-08] MEDS: NICOTINE POLACRILEX 2 MG GUM BC PRN (18:48)
[2019-01-08] MEDS: THIAMINE HCL 100 MG TABLET (FP) PO SCH (21:09)
[2019-01-08] MEDS: MELATONIN 5 MG TABLETS PO PRN (21:10)
[2019-01-08] MEDS ORDERED: PT OWN MED DRAWER 7, Y5N ONE ×2 (22:55→23:44)
[2019-01-09] MEDS: hydrOXYzine PAMOATE 50 MG CAPSULE (FP) PO PRN ×4 (06:39→21:20)
[2019-01-09] MEDS: GABAPENTIN 300 MG CAPSULE (FP) PO SCH ×3 (06:39→21:19)
[2019-01-09] MEDS: PRENATAL VITAMINS W/ FOLIC ACID TABLET (FP) PO SCH (09:53)
[2019-01-09] MEDS: TOLNAFTATE 1% CREAM 15 GM TUBE TP SCH ×2 (09:53→21:20)
[2019-01-09] MEDS: NICOTINE 14 MG/24 HOURS TOPICAL PATCH TD SCH (09:53)
[2019-01-09] MEDS: NICOTINE POLACRILEX 2 MG GUM BC PRN (09:54)
[2019-01-09] MEDS ORDERED: PT OWN MED DRAWER 7, Y5N ONE (16:41)
[2019-01-09] MEDS: WARFARIN NA 5 MG TABLET (UD) PO SCH (18:20)
[2019-01-09] MEDS: ACETAMINOPHEN 325 MG TABLET (FP) PO PRN (19:30)
[2019-01-09] MEDS: THIAMINE HCL 100 MG TABLET (FP) PO SCH (21:19)
[2019-01-10] MEDS ORDERED: PT OWN MED DRAWER 7, Y5N ONE ×4 (01:10→09:04)
[2019-01-10] MEDS: ACETAMINOPHEN 325 MG TABLET (FP) PO PRN (01:13)
[2019-01-10] MEDS: hydrOXYzine PAMOATE 50 MG CAPSULE (FP) PO PRN ×3 (06:39→16:01)
[2019-01-10] MEDS: GABAPENTIN 300 MG CAPSULE (FP) PO SCH ×3 (06:39→21:07)
[2019-01-10] MEDS: KETOROLAC TROMETHAMINE 10 MG TABLET PO PRN (06:39)
[2019-01-10] MEDS: NICOTINE 14 MG/24 HOURS TOPICAL PATCH TD SCH (09:47)
[2019-01-10] MEDS: PRENATAL VITAMINS W/ FOLIC ACID TABLET (FP) PO SCH (09:47)
[2019-01-10] MEDS: TOLNAFTATE 1% CREAM 15 GM TUBE TP SCH ×2 (09:47→21:08)
[2019-01-10] MEDS: NICOTINE POLACRILEX 2 MG GUM BC PRN ×2 (11:08→13:46)
--- NOTE | 2019-01-10 11:54 | PN ---
[facility] Progress Note Note: LAB REVIEW Laboratory Tests 01/07/19 01/08/19 01/08/19 20:30 07:50 07:50 WBC RBC Hgb Hct MCV MCH MCHC RDW Plt Count MPV PT with INR INR Sodium 138 Potassium 4.5 Chloride 103 Carbon Dioxide 27 Anion Gap 8 BUN 13.5 Creatinine 0.8 Est GFR (CKD-EPI)AfAm 111.48 Est GFR (CKD-EPI)NonAf 96.19 Random Glucose 97 Calcium 9.0 Total Bilirubin 0.3 AST 57 H ALT 69 H Alkaline Phosphatase 129 H Total Protein 8.4 H Albumin 3.3 L Urine Color Urine Appearance Urine pH Ur Specific [place] Urine Protein Urine Glucose (UA) Urine Ketones Urine Blood Urine Nitrite Urine Bilirubin Urine Urobilinogen Ur Leukocyte Esterase Urine WBC (Auto) Urine RBC (Auto) Urine Casts (Auto) U Epithel Cells (Auto) Urine Bacteria (Auto) POC Urine HCG, Qual Negative RPR Titer Nonreactive 01/08/19 01/08/19 01/08/19 08:20 08:20 09:10 WBC 11.8 H RBC 4.45 Hgb 13.8 Hct 41.6 MCV 93.5 MCH 31.1 MCHC 33.3 RDW 16.7 H Plt Count 283 MPV 9.0 PT with INR 18.80 H INR 1.59 H Sodium Potassium Chloride Carbon Dioxide Anion Gap BUN Creatinine Est GFR (CKD-EPI)AfAm Est GFR (CKD-EPI)NonAf Random Glucose Calcium Total Bilirubin AST ALT Alkaline Phosphatase Total Protein Albumin Urine Color Yellow Urine Appearance Cloudy Urine pH 5.5 D Ur Specific [place] 1.019 Urine Protein 1+ H Urine Glucose (UA) Negative Urine Ketones Negative Urine Blood 1+ H Urine Nitrite Negative Urine Bilirubin Negative Urine Urobilinogen 1.0 Ur Leukocyte Esterase 1+ H Urine WBC (Auto) 6 Urine RBC (Auto) 4 Urine Casts (Auto) 1 U Epithel Cells (Auto) 10.2 Urine Bacteria (Auto) 105.5 POC Urine HCG, Qual RPR Titer PT/INR = 18.80/1.59 ON 01/08/19 A:HX MITRAL VALVE REPLACEMENT ON COUMADIN 5 MG PO DAILY P:WILL REPEAT INR ON 01/11/19(TO DETERMINE APPROPRIATE DOSE EFFECT OF CURRENT DOSE BEFORE CONSIDERING TO INCREASE DOSE). REPEAT UA INCREASE PO FLUIDS
[2019-01-10] MEDS: WARFARIN NA 5 MG TABLET (UD) PO SCH (17:46)
[2019-01-10] MEDS: THIAMINE HCL 100 MG TABLET (FP) PO SCH (21:07)
[2019-01-10] MEDS: MELATONIN 5 MG TABLETS PO PRN (21:08)
[2019-01-11] MEDS: GABAPENTIN 300 MG CAPSULE (FP) PO SCH ×3 (06:46→22:03)
[2019-01-11] MEDS: NICOTINE POLACRILEX 2 MG GUM BC PRN (06:48)
[2019-01-11] MEDS: hydrOXYzine PAMOATE 50 MG CAPSULE (FP) PO PRN ×3 (06:48→19:18)
--- NOTE | 2019-01-11 09:44 | PN ---
S Progress Note Note: Pt requesting to increase nicotine patch stating she smokes 2 ppd: Aveeno soap for c/o dry ski; c/o vaginal discomfort. Denies burning or itch. Vital Signs - 24 hr 01/11/19 01/11/19 01/11/19 00:30 03:30 07:14 Temperature 97.8 F Pulse Rate 82 Respiratory 17 18 18 Rate Blood Pressure 109/76 Urine Test Results Urine Color Yellow 01/08/19 09:10 Urine Appearance Cloudy 01/08/19 09:10 Urine pH 5.5 (5.0-8.0) D 01/08/19 09:10 Ur Specific [place] 1.019 (1.010-1.035) 01/08/19 09:10 Urine Protein 1+ (NEGATIVE) H 01/08/19 09:10 Urine Glucose (UA) Negative (NEGATIVE) 01/08/19 09:10 Urine Ketones Negative (NEGATIVE) 01/08/19 09:10 Urine Blood 1+ (NEGATIVE) H 01/08/19 09:10 Urine Nitrite Negative (NEGATIVE) 01/08/19 09:10 Urine Bilirubin Negative (NEGATIVE) 01/08/19 09:10 Ur Leukocyte Esterase 1+ (NEGATIVE) H 01/08/19 09:10 Laboratory Tests 01/07/19 01/08/19 01/08/19 20:30 07:50 07:50 WBC RBC Hgb Hct MCV MCH MCHC RDW Plt Count MPV PT with INR INR Sodium 138 Potassium 4.5 Chloride 103 Carbon Dioxide 27 Anion Gap 8 BUN 13.5 Creatinine 0.8 Est GFR (CKD-EPI)AfAm 111.48 Est GFR (CKD-EPI)NonAf 96.19 Random Glucose 97 Calcium 9.0 Total Bilirubin 0.3 AST 57 H ALT 69 H Alkaline Phosphatase 129 H Total Protein 8.4 H Albumin 3.3 L Urine Color Urine Appearance Urine pH Ur Specific [place] Urine Protein Urine Glucose (UA) Urine Ketones Urine Blood Urine Nitrite Urine Bilirubin Urine Urobilinogen Ur Leukocyte Esterase Urine WBC (Auto) Urine RBC (Auto) Urine Casts (Auto) U Epithel Cells (Auto) Urine Bacteria (Auto) POC Urine HCG, Qual Negative RPR Titer Nonreactive 01/08/19 01/08/19 01/08/19 08:20 08:20 09:10 WBC 11.8 H RBC 4.45 Hgb 13.8 Hct 41.6 MCV 93.5 MCH 31.1 MCHC 33.3 RDW 16.7 H Plt Count 283 MPV 9.0 PT with INR 18.80 H INR 1.59 H Sodium Potassium Chloride Carbon Dioxide Anion Gap BUN Creatinine Est GFR (CKD-EPI)AfAm Est GFR (CKD-EPI)NonAf Random Glucose Calcium Total Bilirubin AST ALT Alkaline Phosphatase Total Protein Albumin Urine Color Yellow Urine Appearance Cloudy Urine pH 5.5 D Ur Specific [place] 1.019 Urine Protein 1+ H Urine Glucose (UA) Negative Urine Ketones Negative Urine Blood 1+ H Urine Nitrite Negative Urine Bilirubin Negative Urine Urobilinogen 1.0 Ur Leukocyte Esterase 1+ H Urine WBC (Auto) 6 Urine RBC (Auto) 4 Urine Casts (Auto) 1 U Epithel Cells (Auto) 10.2 Urine Bacteria (Auto) 105.5 POC Urine HCG, Qual RPR Titer A:LEUK HUNTER (+) Bacteria 105.5 Plan:Repeat UA;UC
[2019-01-11] MEDS: COLLOIDAL OATMEAL 1 BAR EACH TP PRN (09:55)
[2019-01-11] MEDS: NICOTINE 21 MG/24 HOURS TOPICAL PATCH TD SCH (09:55)
[2019-01-11] MEDS: TOLNAFTATE 1% CREAM 15 GM TUBE TP SCH ×2 (09:56→22:03)
[2019-01-11] MEDS: PRENATAL VITAMINS W/ FOLIC ACID TABLET (FP) PO SCH (09:56)
[2019-01-11] MEDS ORDERED: PT OWN MED DRAWER 7, Y5N ONE ×2 (11:54→16:40)
[2019-01-11 13:12] LABS: INR 1.39 (0.83-1.09); PROTHROMBIN TIME (PATIENT) 16.5 SEC (9.7-13.0)
[2019-01-11] MEDS: NICOTINE POLACRILEX 4 MG GUM BUC PRN (13:27)
[2019-01-11] MEDS: CEPHALEXIN MONOHYDRATE 500 MG CAPSULE (UD) PO SCH ×2 (14:09→22:03)
[2019-01-11] MEDS: LIDOCAINE 5% TOPICAL PATCH TP SCH (14:09)
--- NOTE | 2019-01-11 14:45 | PN ---
[facility] Progress Note (SOAP) Subjective: patient c/o bartholin gland swelling. PMHx of same stated that previously it had to be incised and drained. Objective: PE deferred at patient request. urine analysis was ordered previously CBC, BMP 01/08/19 08:20 01/08/19 07:50 Urine Test Results Urine Color Yellow 01/08/19 09:10 Urine Appearance Cloudy 01/08/19 09:10 Urine pH 5.5 (5.0-8.0) D 01/08/19 09:10 Ur Specific [place] 1.019 (1.010-1.035) 01/08/19 09:10 Urine Protein 1+ (NEGATIVE) H 01/08/19 09:10 Urine Glucose (UA) Negative (NEGATIVE) 01/08/19 09:10 Urine Ketones Negative (NEGATIVE) 01/08/19 09:10 Urine Blood 1+ (NEGATIVE) H 01/08/19 09:10 Urine Nitrite Negative (NEGATIVE) 01/08/19 09:10 Urine Bilirubin Negative (NEGATIVE) 01/08/19 09:10 Ur Leukocyte Esterase 1+ (NEGATIVE) H 01/08/19 09:10 01/11/19 14:42 Assessment: bartholin gland swelliing 01/11/19 14:43 Plan: Started on Keflex, advised to apply warm soaks. Will continue to monitor.
--- NOTE | 2019-01-11 14:55 | PN ---
S Progress Note (SOAP) Subjective: patient has hx of mitral valve replacement, is on waarfarin 5mg daily. PT/INR drawn today. Objective: PE: No s/s of bleeding, heart sounds regular, lungs clear, abd soft, non-tender , +BS. 01/11/19 14:53 Lab Results WBC 11.8 K/mm3 (4.0-10.0) H 01/08/19 08:20 RBC 4.45 M/mm3 (3.60-5.2) 01/08/19 08:20 Hgb 13.8 GM/dL (10.7-15.3) 01/08/19 08:20 Hct 41.6 % (32.4-45.2) 01/08/19 08:20 MCV 93.5 fl (80-96) 01/08/19 08:20 MCHC 33.3 g/dl (32.0-36.0) 01/08/19 08:20 RDW 16.7 % (11.6-15.6) H 01/08/19 08:20 Plt Count 283 K/MM3 (134-434) 01/08/19 08:20 Sodium 138 mmol/L (136-145) 01/08/19 07:50 Potassium 4.5 mmol/L (3.5-5.1) 01/08/19 07:50 Chloride 103 mmol/L (98-107) 01/08/19 07:50 Carbon Dioxide 27 mmol/L (21-32) 01/08/19 07:50 Anion Gap 8 MMOL/L (8-16) 01/08/19 07:50 BUN 13.5 mg/dL (7-18) 01/08/19 07:50 Creatinine 0.8 mg/dL (0.55-1.3) 01/08/19 07:50 Random Glucose 97 mg/dL (74-106) 01/08/19 07:50 Calcium 9.0 mg/dL (8.5-10.1) 01/08/19 07:50 INR 1.39 (0.83-1.09) H 01/11/19 08:20 Assessment: Mechanical heart valve requiring anticoagulation. 01/11/19 14:53 Plan: Warfarin dose increased to 7.5mg daily, PT/INR to be re-drawn on 01/14
[2019-01-11] MEDS ORDERED: WARFARIN NA 7.5 MG TABLET (FP) PO SCH (18:00)
[2019-01-11] MEDS: LIDOCAINE PATCH REMOVAL MC SCH (22:03)
[2019-01-11] MEDS: MELATONIN 5 MG TABLETS PO PRN (22:03)
[2019-01-11] MEDS: THIAMINE HCL 100 MG TABLET (FP) PO SCH (22:03)
[2019-01-11] MEDS: MAGNESIUM HYDROX 2400MG/30ML ORAL SUSPENSION 30 ML CUP PO PRN (22:05)
[2019-01-12] MEDS: GABAPENTIN 300 MG CAPSULE (FP) PO SCH ×3 (06:41→21:54)
[2019-01-12] MEDS: hydrOXYzine PAMOATE 50 MG CAPSULE (FP) PO PRN ×4 (06:41→21:54)
[2019-01-12] MEDS ORDERED: PT OWN MED DRAWER 7, Y5N ONE ×2 (09:07→15:37)
[2019-01-12] MEDS: CEPHALEXIN MONOHYDRATE 500 MG CAPSULE (UD) PO SCH (09:31)
[2019-01-12] MEDS: TOLNAFTATE 1% CREAM 15 GM TUBE TP SCH ×2 (09:31→21:55)
[2019-01-12] MEDS: PRENATAL VITAMINS W/ FOLIC ACID TABLET (FP) PO SCH (09:31)
[2019-01-12] MEDS: NICOTINE 21 MG/24 HOURS TOPICAL PATCH TD SCH (09:31)
[2019-01-12] MEDS: LIDOCAINE 5% TOPICAL PATCH TP SCH (09:32)
--- NOTE | 2019-01-12 10:24 | PN ---
S Progress Note Note: Pt states her usual dose of coumadin is 10mg. Now is at 7.5mg. Pt concerned about her low current INR level and the risk for clotting. Will increase dose of coumadin to 10mg and repeat labs in 3 days- Sat morning and readjust. Pt has been on coumadin for several years and understands the risks for bleeding. Pt states antibiotics interfere with coumadin metabolism and states she may refuse these meds if she is feeling better with the bartholin cyst treatment
[2019-01-12] MEDS: WARFARIN NA 5 MG TABLET (UD) PO SCH (17:53)
[2019-01-12] MEDS: NICOTINE POLACRILEX 4 MG GUM BUC PRN (17:55)
[2019-01-12] MEDS: MELATONIN 5 MG TABLETS PO PRN (21:54)
[2019-01-12] MEDS: LIDOCAINE PATCH REMOVAL MC SCH (21:54)
[2019-01-12] MEDS: THIAMINE HCL 100 MG TABLET (FP) PO SCH (21:54)
[2019-01-12] MEDS: MAGNESIUM HYDROX 2400MG/30ML ORAL SUSPENSION 30 ML CUP PO PRN (22:39)
[2019-01-13] MEDS: GABAPENTIN 300 MG CAPSULE (FP) PO SCH ×3 (06:45→21:48)
[2019-01-13] MEDS: hydrOXYzine PAMOATE 50 MG CAPSULE (FP) PO PRN (06:45)
[2019-01-13] MEDS: NICOTINE POLACRILEX 4 MG GUM BUC PRN ×2 (08:54→13:56)
[2019-01-13] MEDS: TOLNAFTATE 1% CREAM 15 GM TUBE TP SCH ×2 (09:07→23:14)
[2019-01-13] MEDS: NICOTINE 21 MG/24 HOURS TOPICAL PATCH TD SCH (09:07)
[2019-01-13] MEDS: LIDOCAINE 5% TOPICAL PATCH TP SCH (09:07)
[2019-01-13] MEDS: PRENATAL VITAMINS W/ FOLIC ACID TABLET (FP) PO SCH (09:07)
--- NOTE | 2019-01-13 14:47 | PN ---
[facility] Progress Note Note: Pt reports gracia bleeding from vaginal area stating the lump boasted and drained. Reports now that the drainage is now brownish. Vital Signs - 24 hr 01/13/19 01/13/19 00:30 07:20 Temperature 97.6 F Pulse Rate 55 L Respiratory 18 18 Rate Blood Pressure 123/76 Laboratory Tests 01/07/19 01/08/19 01/08/19 20:30 07:50 07:50 WBC RBC Hgb Hct MCV MCH MCHC RDW Plt Count MPV PT with INR INR Sodium 138 Potassium 4.5 Chloride 103 Carbon Dioxide 27 Anion Gap 8 BUN 13.5 Creatinine 0.8 Est GFR (CKD-EPI)AfAm 111.48 Est GFR (CKD-EPI)NonAf 96.19 Random Glucose 97 Calcium 9.0 Total Bilirubin 0.3 AST 57 H ALT 69 H Alkaline Phosphatase 129 H Total Protein 8.4 H Albumin 3.3 L Urine Color Urine Appearance Urine pH Ur Specific [place] Urine Protein Urine Glucose (UA) Urine Ketones Urine Blood Urine Nitrite Urine Bilirubin Urine Urobilinogen Ur Leukocyte Esterase Urine WBC (Auto) Urine RBC (Auto) Urine Casts (Auto) U Epithel Cells (Auto) Urine Bacteria (Auto) POC Urine HCG, Qual Negative RPR Titer Nonreactive 01/08/19 01/08/19 01/08/19 08:20 08:20 09:10 WBC 11.8 H RBC 4.45 Hgb 13.8 Hct 41.6 MCV 93.5 MCH 31.1 MCHC 33.3 RDW 16.7 H Plt Count 283 MPV 9.0 PT with INR 18.80 H INR 1.59 H Sodium Potassium Chloride Carbon Dioxide Anion Gap BUN Creatinine Est GFR (CKD-EPI)AfAm Est GFR (CKD-EPI)NonAf Random Glucose Calcium Total Bilirubin AST ALT Alkaline Phosphatase Total Protein Albumin Urine Color Yellow Urine Appearance Cloudy Urine pH 5.5 D Ur Specific [place] 1.019 Urine Protein 1+ H Urine Glucose (UA) Negative Urine Ketones Negative Urine Blood 1+ H Urine Nitrite Negative Urine Bilirubin Negative Urine Urobilinogen 1.0 Ur Leukocyte Esterase 1+ H Urine WBC (Auto) 6 Urine RBC (Auto) 4 Urine Casts (Auto) 1 U Epithel Cells (Auto) 10.2 Urine Bacteria (Auto) 105.5 POC Urine HCG, Qual RPR Titer 01/11/19 08:20 WBC RBC Hgb Hct MCV MCH MCHC RDW Plt Count MPV PT with INR 16.50 H INR 1.39 H Sodium Potassium Chloride Carbon Dioxide Anion Gap BUN Creatinine Est GFR (CKD-EPI)AfAm Est GFR (CKD-EPI)NonAf Random Glucose Calcium Total Bilirubin AST ALT Alkaline Phosphatase Total Protein Albumin Urine Color Urine Appearance Urine pH Ur Specific [place] Urine Protein Urine Glucose (UA) Urine Ketones Urine Blood Urine Nitrite Urine Bilirubin Urine Urobilinogen Ur Leukocyte Esterase Urine WBC (Auto) Urine RBC (Auto) Urine Casts (Auto) U Epithel Cells (Auto) Urine Bacteria (Auto) POC Urine HCG, Qual RPR Titer ua and uc specimen collection still pending. Exam:Deferred(Pt reports past experience with same and states she is familiar with her problem). A:Draining Bartholin's cyst Plan:Apply warm compress with disposable wash cloth TID Bacitracin ointment apply to labia majora site of cyst. Keep area clean
[2019-01-13] MEDS: WARFARIN NA 5 MG TABLET (UD) PO SCH (18:06)
[2019-01-13] MEDS: THIAMINE HCL 100 MG TABLET (FP) PO SCH (21:48)
[2019-01-13] MEDS: MELATONIN 5 MG TABLETS PO PRN (21:48)
[2019-01-13] MEDS: BACITRACIN 15 GM TUBE TOPICAL OINTMENT TP SCH (21:49)
[2019-01-13] MEDS: LIDOCAINE PATCH REMOVAL MC SCH (23:14)
[2019-01-14] MEDS: GABAPENTIN 300 MG CAPSULE (FP) PO SCH ×3 (06:12→21:48)
[2019-01-14] MEDS: NICOTINE 21 MG/24 HOURS TOPICAL PATCH TD SCH (10:30)
[2019-01-14] MEDS: PRENATAL VITAMINS W/ FOLIC ACID TABLET (FP) PO SCH (10:30)
[2019-01-14] MEDS: TOLNAFTATE 1% CREAM 15 GM TUBE TP SCH ×2 (10:30→21:49)
[2019-01-14] MEDS: hydrOXYzine PAMOATE 50 MG CAPSULE (FP) PO PRN ×2 (10:32→19:26)
[2019-01-14] MEDS: LIDOCAINE 5% TOPICAL PATCH TP SCH (10:41)
[2019-01-14] MEDS: BACITRACIN 15 GM TUBE TOPICAL OINTMENT TP SCH ×2 (13:10→21:49)
[2019-01-14] MEDS: WARFARIN NA 5 MG TABLET (UD) PO SCH (17:31)
[2019-01-14] MEDS: NICOTINE POLACRILEX 4 MG GUM BUC PRN (17:32)
--- NOTE | 2019-01-14 19:16 | PN ---
[facility] Progress Note Note: PER GATO MENDOZA, PATIENT MENTIONED SHE WAS ON ABX IN DETOX. ACCORDING TO PREVIOUS PROVIDER NOTES, PATIENT DX WITH BARTHOLIN CYST AND GIVEN KEFLEX. HOWEVER, PATIENT REFUSED MEDICATION DUE TO INTERACTION WITH COUMADIN. PATIENT STARTED ON WARM COMPRESS AND BACITRACIN OINTMENT. GATO MENDOZA UPDATED ON TREATMENT PLAN AND ADVISED TO REINFORCE PLAN TO PATIENT. PATIENT TO BE MONITORED CLINICALLY. Vital Signs (72 hours) 01/12/19 01/12/19 01/12/19 00:30 03:30 06:46 Temperature 98.2 F Pulse Rate 84 Respiratory 18 18 18 Rate Blood Pressure 113/66 01/13/19 01/13/19 01/14/19 00:30 07:20 00:30 Temperature 97.6 F Pulse Rate 55 L Respiratory 18 18 18 Rate Blood Pressure 123/76 01/14/19 07:09 Temperature 97.7 F Pulse Rate 77 Respiratory 18 Rate Blood Pressure 104/64
--- NOTE | 2019-01-14 19:26 | PN ---
S Progress Note Note: pt requesting restart of abx previously d/c'd . meds restarted - to be re- eval by medicine in the a.m.
[2019-01-14 21:29] LABS: EPI CELLS 6.7 /HPF (0-5/HPF); HYALINE CASTS 4 /lpf (0-8); PH,URINE 5.5 (5.0-8.0); URINE APPEARANCE CLEAR; URINE BILIRUBIN NEGATIVE (NEGATIVE); URINE COLOR YELLOW; URINE GLUCOSE (UA) NEGATIVE (NEGATIVE); URINE KETONE NEGATIVE (NEGATIVE); URINE LEUK ESTERASE 2+ (NEGATIVE); URINE NITRITE NEGATIVE (NEGATIVE); URINE PROTEIN NEGATIVE (NEGATIVE); URINE RBC 6 /hpf (0-4); URINE UROBILINOGEN 0.2 mg/dL (0.2-1.0); URINE WBC 62 /hpf (0-5)
[2019-01-14] MEDS: THIAMINE HCL 100 MG TABLET (FP) PO SCH (21:48)
[2019-01-14] MEDS: LIDOCAINE PATCH REMOVAL MC SCH (21:49)
[2019-01-14] MEDS: CEPHALEXIN MONOHYDRATE 500 MG CAPSULE (UD) PO SCH (21:49)
[2019-01-14] MEDS: MELATONIN 5 MG TABLETS PO PRN (21:50)
[2019-01-15] MEDS: GABAPENTIN 300 MG CAPSULE (FP) PO SCH ×3 (06:36→21:38)
[2019-01-15] MEDS: TOLNAFTATE 1% CREAM 15 GM TUBE TP SCH ×2 (09:41→21:38)
[2019-01-15] MEDS: CEPHALEXIN MONOHYDRATE 500 MG CAPSULE (UD) PO SCH ×2 (09:41→21:38)
[2019-01-15] MEDS: LIDOCAINE 5% TOPICAL PATCH TP SCH (09:41)
[2019-01-15] MEDS: NICOTINE 21 MG/24 HOURS TOPICAL PATCH TD SCH (09:41)
[2019-01-15] MEDS: PRENATAL VITAMINS W/ FOLIC ACID TABLET (FP) PO SCH (09:41)
[2019-01-15] MEDS: BACITRACIN 15 GM TUBE TOPICAL OINTMENT TP SCH ×2 (09:43→21:59)
[2019-01-15] MEDS: hydrOXYzine PAMOATE 50 MG CAPSULE (FP) PO PRN ×2 (09:44→21:38)
[2019-01-15 10:40] LABS: INR 1.93 (0.83-1.09); PROTHROMBIN TIME (PATIENT) 22.9 SEC (9.7-13.0)
[2019-01-15] MEDS: NICOTINE POLACRILEX 4 MG GUM BUC PRN ×2 (11:42→22:00)
--- NOTE | 2019-01-15 16:00 | PN ---
[facility] Progress Note Note: Lab Review: Patient on AC for MVR, goal of 2.5-3.5. Previously on 5mg of warfarin, increased to 10mg on 01/12 Abnormal Lab Results 01/13/19 01/15/19 14:00 08:00 PT with INR 22.90 H INR 1.93 H Urine Blood 2+ H Ur Leukocyte Esterase 2+ H PT/INR on 01/08 was 18.80/1.59 Level trending up Plan-Continue current warfarin dose Repeat PT/INR on 01/17
[2019-01-15] MEDS ORDERED: PT OWN MED DRAWER 7, Y5N ONE (16:28)
[2019-01-15] MEDS: WARFARIN NA 5 MG TABLET (UD) PO SCH (18:00)
[2019-01-15] MEDS: MELATONIN 5 MG TABLETS PO PRN (21:38)
[2019-01-15] MEDS: THIAMINE HCL 100 MG TABLET (FP) PO SCH (21:38)
[2019-01-15] MEDS: LIDOCAINE PATCH REMOVAL MC SCH (22:00)
[2019-01-16] MEDS: GABAPENTIN 300 MG CAPSULE (FP) PO SCH ×3 (06:39→21:45)
[2019-01-16] MEDS: CEPHALEXIN MONOHYDRATE 500 MG CAPSULE (UD) PO SCH ×2 (10:02→21:45)
[2019-01-16] MEDS: NICOTINE 21 MG/24 HOURS TOPICAL PATCH TD SCH (10:02)
[2019-01-16] MEDS: TOLNAFTATE 1% CREAM 15 GM TUBE TP SCH ×2 (10:02→21:46)
[2019-01-16] MEDS: LIDOCAINE 5% TOPICAL PATCH TP SCH (10:02)
[2019-01-16] MEDS: PRENATAL VITAMINS W/ FOLIC ACID TABLET (FP) PO SCH (10:02)
[2019-01-16] MEDS: BACITRACIN 15 GM TUBE TOPICAL OINTMENT TP SCH ×2 (10:03→21:47)
[2019-01-16] MEDS: hydrOXYzine PAMOATE 50 MG CAPSULE (FP) PO PRN ×2 (10:03→21:46)
[2019-01-16] MEDS ORDERED: PT OWN MED DRAWER 7, Y5N ONE (16:24)
[2019-01-16] MEDS: WARFARIN NA 5 MG TABLET (UD) PO SCH (17:05)
[2019-01-16] MEDS: MELATONIN 5 MG TABLETS PO PRN (21:45)
[2019-01-16] MEDS: THIAMINE HCL 100 MG TABLET (FP) PO SCH (21:46)
[2019-01-16] MEDS: LIDOCAINE PATCH REMOVAL MC SCH (21:47)
[2019-01-16] MEDS: NICOTINE POLACRILEX 4 MG GUM BUC PRN (21:48)
[2019-01-17] MEDS: GABAPENTIN 300 MG CAPSULE (FP) PO SCH ×3 (06:35→21:18)
[2019-01-17] MEDS: NICOTINE 21 MG/24 HOURS TOPICAL PATCH TD SCH (10:14)
[2019-01-17] MEDS: CEPHALEXIN MONOHYDRATE 500 MG CAPSULE (UD) PO SCH ×2 (10:15→21:18)
[2019-01-17] MEDS: LIDOCAINE 5% TOPICAL PATCH TP SCH (10:15)
[2019-01-17] MEDS: hydrOXYzine PAMOATE 50 MG CAPSULE (FP) PO PRN ×2 (10:15→18:04)
--- NOTE | 2019-01-17 10:24 | PN ---
[facility] Progress Note Note: PATIENT SEEN FOR FOLLOW UP ABNROMAL URINE CULTURE/UA. PATIENT CURRENTLY TREATED FOR BARTHOLIN CYST INFLAMMATION WHICH SHE STATES WAS DRAINING PUS/BLOOD AT TIME OF URINE COLLECTION. PATIENT DENIES ANY PAIN, SWELLING AND/OR DRAINING OF CYST AT THIS TIME. KEFLEX TREATMENT IN PROGRESS. Laboratory Tests 01/07/19 01/08/19 01/08/19 20:30 07:50 07:50 WBC RBC Hgb Hct MCV MCH MCHC RDW Plt Count MPV PT with INR INR Sodium 138 Potassium 4.5 Chloride 103 Carbon Dioxide 27 Anion Gap 8 BUN 13.5 Creatinine 0.8 Est GFR (CKD-EPI)AfAm 111.48 Est GFR (CKD-EPI)NonAf 96.19 Random Glucose 97 Calcium 9.0 Total Bilirubin 0.3 AST 57 H ALT 69 H Alkaline Phosphatase 129 H Total Protein 8.4 H Albumin 3.3 L Urine Color Urine Appearance Urine pH Ur Specific [place] Urine Protein Urine Glucose (UA) Urine Ketones Urine Blood Urine Nitrite Urine Bilirubin Urine Urobilinogen Ur Leukocyte Esterase Urine WBC (Auto) Urine RBC (Auto) Urine Casts (Auto) U Epithel Cells (Auto) Urine Bacteria (Auto) POC Urine HCG, Qual Negative RPR Titer Nonreactive 01/08/19 01/08/19 01/08/19 08:20 08:20 09:10 WBC 11.8 H RBC 4.45 Hgb 13.8 Hct 41.6 MCV 93.5 MCH 31.1 MCHC 33.3 RDW 16.7 H Plt Count 283 MPV 9.0 PT with INR 18.80 H INR 1.59 H Sodium Potassium Chloride Carbon Dioxide Anion Gap BUN Creatinine Est GFR (CKD-EPI)AfAm Est GFR (CKD-EPI)NonAf Random Glucose Calcium Total Bilirubin AST ALT Alkaline Phosphatase Total Protein Albumin Urine Color Yellow Urine Appearance Cloudy Urine pH 5.5 D Ur Specific [place] 1.019 Urine Protein 1+ H Urine Glucose (UA) Negative Urine Ketones Negative Urine Blood 1+ H Urine Nitrite Negative Urine Bilirubin Negative Urine Urobilinogen 1.0 Ur Leukocyte Esterase 1+ H Urine WBC (Auto) 6 Urine RBC (Auto) 4 Urine Casts (Auto) 1 U Epithel Cells (Auto) 10.2 Urine Bacteria (Auto) 105.5 POC Urine HCG, Qual RPR Titer 01/11/19 01/13/19 01/15/19 08:20 14:00 08:00 WBC RBC Hgb Hct MCV MCH MCHC RDW Plt Count MPV PT with INR 16.50 H 22.90 H INR 1.39 H 1.93 H Sodium Potassium Chloride Carbon Dioxide Anion Gap BUN Creatinine Est GFR (CKD-EPI)AfAm Est GFR (CKD-EPI)NonAf Random Glucose Calcium Total Bilirubin AST ALT Alkaline Phosphatase Total Protein Albumin Urine Color Yellow Urine Appearance Clear Urine pH 5.5 Ur Specific [place] 1.018 Urine Protein Negative Urine Glucose (UA) Negative Urine Ketones Negative Urine Blood 2+ H Urine Nitrite Negative Urine Bilirubin Negative Urine Urobilinogen 0.2 Ur Leukocyte Esterase 2+ H Urine WBC (Auto) 62 Urine RBC (Auto) 6 Urine Casts (Auto) 4 U Epithel Cells (Auto) 6.7 Urine Bacteria (Auto) 407.0 POC Urine HCG, Qual RPR Titer PE: ALERT AND ORIENTED X 3 SKIN WARM AND DRY DEFERRED GROIN EXAM PATIENT STATES " I HAVE TO GO TO GROUP NOW, I AM OK" EXT FULL ROM, NO SWELLING AMB AD BAHINAV A/P: URINE CULTURE 10,000-20,000 COL OF STEP D OR ENTEROCOCCUS BARTHOLIN CYST HX MVR ON AC TREATMENT WILL CONTINUE KEFLEX ORDERED LOCAL TREATMENT WITH BACITRACIN TO SITE CONTINUE COUMADIN PT/INR PENDING
[2019-01-17] MEDS: PRENATAL VITAMINS W/ FOLIC ACID TABLET (FP) PO SCH (10:48)
[2019-01-17] MEDS: BACITRACIN 15 GM TUBE TOPICAL OINTMENT TP SCH ×2 (10:49→21:18)
[2019-01-17] MEDS: TOLNAFTATE 1% CREAM 15 GM TUBE TP SCH ×2 (10:49→21:19)
[2019-01-17 15:02] LABS: INR 2.24 (0.83-1.09); PROTHROMBIN TIME (PATIENT) 26.7 SEC (9.7-13.0)
--- NOTE | 2019-01-17 16:08 | PN ---
[facility] Progress Note Note: Laboratory Tests 01/07/19 01/08/19 01/08/19 20:30 07:50 07:50 WBC RBC Hgb Hct MCV MCH MCHC RDW Plt Count MPV PT with INR INR Sodium 138 Potassium 4.5 Chloride 103 Carbon Dioxide 27 Anion Gap 8 BUN 13.5 Creatinine 0.8 Est GFR (CKD-EPI)AfAm 111.48 Est GFR (CKD-EPI)NonAf 96.19 Random Glucose 97 Calcium 9.0 Total Bilirubin 0.3 AST 57 H ALT 69 H Alkaline Phosphatase 129 H Total Protein 8.4 H Albumin 3.3 L Urine Color Urine Appearance Urine pH Ur Specific [place] Urine Protein Urine Glucose (UA) Urine Ketones Urine Blood Urine Nitrite Urine Bilirubin Urine Urobilinogen Ur Leukocyte Esterase Urine WBC (Auto) Urine RBC (Auto) Urine Casts (Auto) U Epithel Cells (Auto) Urine Bacteria (Auto) POC Urine HCG, Qual Negative RPR Titer Nonreactive 01/08/19 01/08/19 01/08/19 08:20 08:20 09:10 WBC 11.8 H RBC 4.45 Hgb 13.8 Hct 41.6 MCV 93.5 MCH 31.1 MCHC 33.3 RDW 16.7 H Plt Count 283 MPV 9.0 PT with INR 18.80 H INR 1.59 H Sodium Potassium Chloride Carbon Dioxide Anion Gap BUN Creatinine Est GFR (CKD-EPI)AfAm Est GFR (CKD-EPI)NonAf Random Glucose Calcium Total Bilirubin AST ALT Alkaline Phosphatase Total Protein Albumin Urine Color Yellow Urine Appearance Cloudy Urine pH 5.5 D Ur Specific [place] 1.019 Urine Protein 1+ H Urine Glucose (UA) Negative Urine Ketones Negative Urine Blood 1+ H Urine Nitrite Negative Urine Bilirubin Negative Urine Urobilinogen 1.0 Ur Leukocyte Esterase 1+ H Urine WBC (Auto) 6 Urine RBC (Auto) 4 Urine Casts (Auto) 1 U Epithel Cells (Auto) 10.2 Urine Bacteria (Auto) 105.5 POC Urine HCG, Qual RPR Titer 01/11/19 01/13/19 01/15/19 08:20 14:00 08:00 WBC RBC Hgb Hct MCV MCH MCHC RDW Plt Count MPV PT with INR 16.50 H 22.90 H INR 1.39 H 1.93 H Sodium Potassium Chloride Carbon Dioxide Anion Gap BUN Creatinine Est GFR (CKD-EPI)AfAm Est GFR (CKD-EPI)NonAf Random Glucose Calcium Total Bilirubin AST ALT Alkaline Phosphatase Total Protein Albumin Urine Color Yellow Urine Appearance Clear Urine pH 5.5 Ur Specific [place] 1.018 Urine Protein Negative Urine Glucose (UA) Negative Urine Ketones Negative Urine Blood 2+ H Urine Nitrite Negative Urine Bilirubin Negative Urine Urobilinogen 0.2 Ur Leukocyte Esterase 2+ H Urine WBC (Auto) 62 Urine RBC (Auto) 6 Urine Casts (Auto) 4 U Epithel Cells (Auto) 6.7 Urine Bacteria (Auto) 407.0 POC Urine HCG, Qual RPR Titer 01/17/19 08:00 WBC RBC Hgb Hct MCV MCH MCHC RDW Plt Count MPV PT with INR 26.70 H INR 2.24 H Sodium Potassium Chloride Carbon Dioxide Anion Gap BUN Creatinine Est GFR (CKD-EPI)AfAm Est GFR (CKD-EPI)NonAf Random Glucose Calcium Total Bilirubin AST ALT Alkaline Phosphatase Total Protein Albumin Urine Color Urine Appearance Urine pH Ur Specific [place] Urine Protein Urine Glucose (UA) Urine Ketones Urine Blood Urine Nitrite Urine Bilirubin Urine Urobilinogen Ur Leukocyte Esterase Urine WBC (Auto) Urine RBC (Auto) Urine Casts (Auto) U Epithel Cells (Auto) Urine Bacteria (Auto) POC Urine HCG, Qual RPR Titer INR RESULT WITHIN THERAPEUTIC RANGE. WILL CONTINUE COUMADIN AT CURRENT DOSE AND REPEAT LABS ON 01/19/19.
[2019-01-17] MEDS ORDERED: PT OWN MED DRAWER 7, Y5N ONE ×2 (16:26→19:11)
[2019-01-17] MEDS: WARFARIN NA 5 MG TABLET (UD) PO SCH (17:03)
[2019-01-17] MEDS: COLLOIDAL OATMEAL 1 BAR EACH TP PRN (18:03)
[2019-01-17] MEDS: NICOTINE POLACRILEX 4 MG GUM BUC PRN (18:04)
[2019-01-17] MEDS: MELATONIN 5 MG TABLETS PO PRN (21:18)
[2019-01-17] MEDS: THIAMINE HCL 100 MG TABLET (FP) PO SCH (21:18)
[2019-01-17] MEDS: LIDOCAINE PATCH REMOVAL MC SCH (21:19)
[2019-01-18] MEDS: GABAPENTIN 300 MG CAPSULE (FP) PO SCH ×3 (06:57→21:25)
[2019-01-18] MEDS: NICOTINE 21 MG/24 HOURS TOPICAL PATCH TD SCH (09:54)
[2019-01-18] MEDS: LIDOCAINE 5% TOPICAL PATCH TP SCH (09:54)
[2019-01-18] MEDS: PRENATAL VITAMINS W/ FOLIC ACID TABLET (FP) PO SCH (09:54)
[2019-01-18] MEDS: CEPHALEXIN MONOHYDRATE 500 MG CAPSULE (UD) PO SCH ×2 (09:54→21:25)
[2019-01-18] MEDS: BACITRACIN 15 GM TUBE TOPICAL OINTMENT TP SCH ×2 (09:55→21:25)
[2019-01-18] MEDS: TOLNAFTATE 1% CREAM 15 GM TUBE TP SCH ×2 (09:55→21:25)
[2019-01-18] MEDS: hydrOXYzine PAMOATE 50 MG CAPSULE (FP) PO PRN ×2 (12:39→21:27)
[2019-01-18] MEDS: WARFARIN NA 5 MG TABLET (UD) PO SCH (18:15)
[2019-01-18] MEDS: THIAMINE HCL 100 MG TABLET (FP) PO SCH (21:25)
[2019-01-18] MEDS: LIDOCAINE PATCH REMOVAL MC SCH (21:25)
[2019-01-18] MEDS: NICOTINE POLACRILEX 4 MG GUM BUC PRN (21:26)
[2019-01-18] MEDS: MELATONIN 5 MG TABLETS PO PRN (21:26)
[2019-01-18] MEDS: MAGNESIUM HYDROX 2400MG/30ML ORAL SUSPENSION 30 ML CUP PO PRN (23:28)
[2019-01-19] MEDS: GABAPENTIN 300 MG CAPSULE (FP) PO SCH ×3 (07:03→21:23)
[2019-01-19] MEDS: BACITRACIN 15 GM TUBE TOPICAL OINTMENT TP SCH ×2 (10:30→21:24)
[2019-01-19] MEDS: hydrOXYzine PAMOATE 50 MG CAPSULE (FP) PO PRN ×3 (10:30→21:25)
[2019-01-19] MEDS: CEPHALEXIN MONOHYDRATE 500 MG CAPSULE (UD) PO SCH (10:30)
[2019-01-19] MEDS: LIDOCAINE 5% TOPICAL PATCH TP SCH (10:31)
[2019-01-19] MEDS: TOLNAFTATE 1% CREAM 15 GM TUBE TP SCH ×2 (10:31→21:24)
[2019-01-19] MEDS: PRENATAL VITAMINS W/ FOLIC ACID TABLET (FP) PO SCH (10:31)
[2019-01-19] MEDS: NICOTINE 21 MG/24 HOURS TOPICAL PATCH TD SCH (10:31)
[2019-01-19] MEDS: NICOTINE POLACRILEX 4 MG GUM BUC PRN ×3 (10:32→21:25)
[2019-01-19 14:50] LABS: INR 2.88 (0.83-1.09); PROTHROMBIN TIME (PATIENT) 34.3 SEC (9.7-13.0)
[2019-01-19] MEDS: WARFARIN NA 5 MG TABLET (UD) PO SCH (18:00)
--- NOTE | 2019-01-19 18:07 | PN ---
[facility] Progress Note Note: Patient refuses to take Coumadin 10 mg. States her doctor ordered 5 mg. INR, PTT INR 2.88 (0.83-1.09) H 01/19/19 08:46 INR reviewed. Patient agrees to take 5 mg only. Will change Coumadin to 5 mg PO Q db.
[2019-01-19] MEDS: THIAMINE HCL 100 MG TABLET (FP) PO SCH (21:23)
[2019-01-19] MEDS: MELATONIN 5 MG TABLETS PO PRN (21:23)
[2019-01-19] MEDS: LIDOCAINE PATCH REMOVAL MC SCH (21:24)
[2019-01-20] MEDS: GABAPENTIN 300 MG CAPSULE (FP) PO SCH ×3 (06:44→21:35)
[2019-01-20] MEDS: LIDOCAINE 5% TOPICAL PATCH TP SCH (09:45)
[2019-01-20] MEDS: hydrOXYzine PAMOATE 50 MG CAPSULE (FP) PO PRN ×3 (09:45→21:36)
[2019-01-20] MEDS: PRENATAL VITAMINS W/ FOLIC ACID TABLET (FP) PO SCH (09:45)
[2019-01-20] MEDS: BACITRACIN 15 GM TUBE TOPICAL OINTMENT TP SCH ×2 (09:46→21:37)
[2019-01-20] MEDS: NICOTINE 21 MG/24 HOURS TOPICAL PATCH TD SCH (09:46)
[2019-01-20] MEDS: TOLNAFTATE 1% CREAM 15 GM TUBE TP SCH ×2 (09:46→21:37)
[2019-01-20] MEDS: MAGNESIUM HYDROX 2400MG/30ML ORAL SUSPENSION 30 ML CUP PO PRN (12:41)
[2019-01-20] MEDS: WARFARIN NA 5 MG TABLET (UD) PO SCH (17:45)
[2019-01-20] MEDS: MELATONIN 5 MG TABLETS PO PRN (21:35)
[2019-01-20] MEDS: THIAMINE HCL 100 MG TABLET (FP) PO SCH (21:35)
[2019-01-20] MEDS: LIDOCAINE PATCH REMOVAL MC SCH (21:37)
[2019-01-21] MEDS: GABAPENTIN 300 MG CAPSULE (FP) PO SCH ×3 (06:24→21:16)
[2019-01-21] MEDS: LIDOCAINE 5% TOPICAL PATCH TP SCH (09:53)
[2019-01-21] MEDS: PRENATAL VITAMINS W/ FOLIC ACID TABLET (FP) PO SCH (09:53)
[2019-01-21] MEDS: NICOTINE 21 MG/24 HOURS TOPICAL PATCH TD SCH (09:53)
[2019-01-21] MEDS: hydrOXYzine PAMOATE 50 MG CAPSULE (FP) PO PRN ×2 (09:55→21:17)
[2019-01-21] MEDS: BACITRACIN 15 GM TUBE TOPICAL OINTMENT TP SCH ×2 (09:56→21:17)
[2019-01-21] MEDS: TOLNAFTATE 1% CREAM 15 GM TUBE TP SCH ×2 (09:57→21:17)
[2019-01-21] MEDS: MAGNESIUM HYDROX 2400MG/30ML ORAL SUSPENSION 30 ML CUP PO PRN (12:51)
[2019-01-21] MEDS: WARFARIN NA 5 MG TABLET (UD) PO SCH (17:38)
[2019-01-21] MEDS: MELATONIN 5 MG TABLETS PO PRN (21:17)
[2019-01-21] MEDS: LIDOCAINE PATCH REMOVAL MC SCH (21:17)
[2019-01-21] MEDS: THIAMINE HCL 100 MG TABLET (FP) PO SCH (21:17)
[2019-01-21] MEDS: NICOTINE POLACRILEX 4 MG GUM BUC PRN (21:18)
[2019-01-22] MEDS: GABAPENTIN 300 MG CAPSULE (FP) PO SCH ×3 (06:42→21:30)
[2019-01-22] MEDS: NICOTINE 21 MG/24 HOURS TOPICAL PATCH TD SCH (09:17)
[2019-01-22] MEDS: PRENATAL VITAMINS W/ FOLIC ACID TABLET (FP) PO SCH (09:17)
[2019-01-22] MEDS: LIDOCAINE 5% TOPICAL PATCH TP SCH (09:17)
[2019-01-22] MEDS: hydrOXYzine PAMOATE 50 MG CAPSULE (FP) PO PRN ×3 (09:18→21:31)
[2019-01-22] MEDS: BACITRACIN 15 GM TUBE TOPICAL OINTMENT TP SCH ×2 (09:53→21:29)
[2019-01-22] MEDS: TOLNAFTATE 1% CREAM 15 GM TUBE TP SCH ×2 (09:54→22:52)
[2019-01-22] MEDS: MAGNESIUM HYDROX 2400MG/30ML ORAL SUSPENSION 30 ML CUP PO PRN (11:24)
[2019-01-22] MEDS: COLLOIDAL OATMEAL 1 BAR EACH TP PRN (11:24)
[2019-01-22] MEDS: WARFARIN NA 5 MG TABLET (UD) PO SCH (17:39)
[2019-01-22] MEDS: LIDOCAINE PATCH REMOVAL MC SCH (21:30)
[2019-01-22] MEDS: THIAMINE HCL 100 MG TABLET (FP) PO SCH (21:30)
[2019-01-22] MEDS: MELATONIN 5 MG TABLETS PO PRN (21:31)
[2019-01-23] MEDS: GABAPENTIN 300 MG CAPSULE (FP) PO SCH ×3 (07:04→21:41)
[2019-01-23] MEDS: LIDOCAINE 5% TOPICAL PATCH TP SCH (09:56)
[2019-01-23] MEDS: NICOTINE 21 MG/24 HOURS TOPICAL PATCH TD SCH (09:56)
[2019-01-23] MEDS: hydrOXYzine PAMOATE 50 MG CAPSULE (FP) PO PRN ×2 (09:57→21:44)
[2019-01-23] MEDS: PRENATAL VITAMINS W/ FOLIC ACID TABLET (FP) PO SCH (09:57)
[2019-01-23] MEDS: NICOTINE POLACRILEX 4 MG GUM BUC PRN (09:58)
[2019-01-23] MEDS: TOLNAFTATE 1% CREAM 15 GM TUBE TP SCH ×2 (09:59→21:41)
[2019-01-23] MEDS: BACITRACIN 15 GM TUBE TOPICAL OINTMENT TP SCH ×2 (09:59→21:41)
[2019-01-23] MEDS: WARFARIN NA 5 MG TABLET (UD) PO SCH (17:51)
[2019-01-23] MEDS: THIAMINE HCL 100 MG TABLET (FP) PO SCH (21:41)
[2019-01-23] MEDS: MELATONIN 5 MG TABLETS PO PRN (21:42)
[2019-01-23] MEDS: LIDOCAINE PATCH REMOVAL MC SCH (23:42)
[2019-01-24] MEDS: GABAPENTIN 300 MG CAPSULE (FP) PO SCH ×3 (06:21→21:39)
[2019-01-24] MEDS: LIDOCAINE 5% TOPICAL PATCH TP SCH (09:45)
[2019-01-24] MEDS: PRENATAL VITAMINS W/ FOLIC ACID TABLET (FP) PO SCH (09:45)
[2019-01-24] MEDS: NICOTINE 21 MG/24 HOURS TOPICAL PATCH TD SCH (09:45)
[2019-01-24] MEDS: hydrOXYzine PAMOATE 50 MG CAPSULE (FP) PO PRN ×2 (09:47→21:39)
[2019-01-24] MEDS: BACITRACIN 15 GM TUBE TOPICAL OINTMENT TP SCH ×2 (10:19→21:41)
[2019-01-24] MEDS: TOLNAFTATE 1% CREAM 15 GM TUBE TP SCH ×2 (10:19→22:14)
--- NOTE | 2019-01-24 14:12 | PN ---
[facility] Progress Note (SOAP) Subjective: Ingrown hair left axillae. 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 Completed a prescription for Keflex for same. Objective: One red raised, non-tender area in left axillae. No s/s of infection. 01/24/19 14:11 01/24/19 14:13 01/24/19 14:14 01/24/19 14:14 Vital Signs (72 hours) 01/22/19 01/22/19 01/22/19 00:30 03:30 06:59 Temperature Pulse Rate Respiratory 18 18 18 Rate Blood Pressure 01/23/19 01/23/19 01/23/19 00:30 03:30 06:41 Temperature Pulse Rate Respiratory 18 18 18 Rate Blood Pressure 01/24/19 01/24/19 01/24/19 00:30 06:44 09:30 Temperature 97.6 F Pulse Rate 71 76 Respiratory 18 18 18 Rate Blood Pressure 116/69 112/68 Assessment: In-grown hair 01/24/19 14:13 Plan: patient advised to apply warm soaks as needed. Resolving.
[2019-01-24 14:49] LABS: INR 1.87 (0.83-1.09); PROTHROMBIN TIME (PATIENT) 22.2 SEC (9.7-13.0)
--- NOTE | 2019-01-24 15:30 | PN ---
[facility] Progress Note (SOAP) Subjective: patient has a mechanical heart valve, on warfarin. Her present dose is 5mg/day. The IRN today was 1.87 Objective: 01/24/19 15:29 Abnormal Lab Results 01/24/19 08:30 PT with INR 22.20 H INR 1.87 H Assessment: INR non-therapuetic 01/24/19 15:29 Plan: warfarin increased to 10mg/day.
[2019-01-24] MEDS: POLYETHYLENE GLYCOL 3350 119 GM BTL PO SCH (16:58)
[2019-01-24] MEDS: NICOTINE POLACRILEX 4 MG GUM BUC PRN (17:02)
[2019-01-24] MEDS: WARFARIN NA 5 MG TABLET (UD) PO SCH (17:02)
[2019-01-24] MEDS ORDERED: WARFARIN NA 5 MG TABLET (UD) PO SCH ×2 (18:00)
[2019-01-24] MEDS: MELATONIN 5 MG TABLETS PO PRN (21:39)
[2019-01-24] MEDS: THIAMINE HCL 100 MG TABLET (FP) PO SCH (21:39)
[2019-01-24] MEDS: LIDOCAINE PATCH REMOVAL MC SCH (21:41)
[2019-01-25] MEDS: GABAPENTIN 300 MG CAPSULE (FP) PO SCH ×4 (06:45→21:22)
[2019-01-25] MEDS: TOLNAFTATE 1% CREAM 15 GM TUBE TP SCH ×2 (10:33→21:23)
[2019-01-25] MEDS: PRENATAL VITAMINS W/ FOLIC ACID TABLET (FP) PO SCH (10:33)
[2019-01-25] MEDS: NICOTINE 21 MG/24 HOURS TOPICAL PATCH TD SCH (10:33)
[2019-01-25] MEDS: LIDOCAINE 5% TOPICAL PATCH TP SCH (10:33)
[2019-01-25] MEDS: POLYETHYLENE GLYCOL 3350 119 GM BTL PO SCH (10:34)
[2019-01-25] MEDS: hydrOXYzine PAMOATE 50 MG CAPSULE (FP) PO PRN ×2 (10:34→17:50)
[2019-01-25] MEDS: BACITRACIN 15 GM TUBE TOPICAL OINTMENT TP SCH ×2 (10:34→21:25)
[2019-01-25] MEDS: NICOTINE POLACRILEX 4 MG GUM BUC PRN ×2 (13:22→17:51)
[2019-01-25] MEDS ORDERED: PT OWN MED DRAWER 7, Y5N ONE (16:31)
[2019-01-25] MEDS: WARFARIN NA 5 MG TABLET (UD) PO SCH (17:08)
[2019-01-25] MEDS: MELATONIN 5 MG TABLETS PO PRN (21:22)
[2019-01-25] MEDS: THIAMINE HCL 100 MG TABLET (FP) PO SCH (21:22)
[2019-01-25] MEDS: LIDOCAINE PATCH REMOVAL MC SCH (21:23)
[2019-01-26] MEDS: GABAPENTIN 300 MG CAPSULE (FP) PO SCH ×2 (06:31→14:02)
[2019-01-26] MEDS: COLLOIDAL OATMEAL 1 BAR EACH TP PRN (06:47)
[2019-01-26 06:55] VITALS: BP 121/59; PULSE 77; TEMP 98
--- NOTE | 2019-01-26 08:29 | PN ---
[facility] Progress Note Note: Psychiatric nurse practitioner note: A 30 day prescription of gabapentin 300mg TID was electronically sent to [facility] at [address] [place] [address].
--- NOTE | 2019-01-26 09:41 | PN ---
[facility] Progress Note (SOAP) Subjective: patient to be discharge today. HOSPITAL COURSE: Patient attended groups, had 1: 1 session with counselor, was adherent to her treatment plan and her medication regimen. During her stay she was treated for a Bartholin cyst, and her Coumadin was managed to ensure that she was sufficiently anti-coagulated because of her mitral valve repair. 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 Lymphatic: no palpable lymph nodes. CBC, BMP 01/08/19 08:20 01/08/19 07:50 Vital Signs (72 hours) 01/24/19 01/24/19 01/24/19 00:30 06:44 09:30 Temperature 97.6 F Pulse Rate 71 76 Respiratory 18 18 18 Rate Blood Pressure 116/69 112/68 01/25/19 01/25/19 01/25/19 00:30 03:30 07:06 Temperature 97.5 F L Pulse Rate 74 Respiratory 18 18 18 Rate Blood Pressure 113/74 01/26/19 01/26/19 01/26/19 00:30 03:30 06:54 Temperature 98 F Pulse Rate 77 Respiratory 18 18 18 Rate Blood Pressure 121/59 L 01/26/19 10:00 Assessment: Medically stable for discharge Discharge Dx; ETOH dependence Cannabis dependence Mitral Valve replacement Hepatitis C 01/26/19 10:04 Plan: On-going continuity of care: patient will arrange for ACS for after-care as required. Patient receives on-going medical care at [facility] Outpatient department.
[2019-01-26] MEDS: LIDOCAINE 5% TOPICAL PATCH TP SCH (09:53)
[2019-01-26] MEDS: hydrOXYzine PAMOATE 50 MG CAPSULE (FP) PO PRN (09:54)
[2019-01-26] MEDS: TOLNAFTATE 1% CREAM 15 GM TUBE TP SCH (10:02)
[2019-01-26] MEDS: PRENATAL VITAMINS W/ FOLIC ACID TABLET (FP) PO SCH (10:02)
[2019-01-26] MEDS: POLYETHYLENE GLYCOL 3350 119 GM BTL PO SCH (10:14)
[2019-01-26] MEDS: NICOTINE 21 MG/24 HOURS TOPICAL PATCH TD SCH (10:14)
[2019-01-26] MEDS: BACITRACIN 15 GM TUBE TOPICAL OINTMENT TP SCH (10:14)
== END 2019-01-26 14:08 | disposition home or self-care (01) | DRG 772 ==
LOC: YASAS 15:04 → Y3E 22:19 → Y3W 01-13 14:47
PROVIDERS: ADMIT Neuromusculoskeletal Medicine & OMM; ATTEND Neuromusculoskeletal Medicine & OMM
PROC: HZ42ZZZ Group Counseling for Substance Abuse Treatment, Cognitive-Behavioral (ICD-10-PCS; principal; 2019-01-07)
DX: F10.20 Alcohol dependence, uncomplicated (principal); F12.20 Cannabis dependence, uncomplicated; F17.213 Nicotine dependence, cigarettes, with withdrawal; F39 Unspecified mood [affective] disorder; F19.24 Other psychoactive substance dependence with psychoactive substance-induced mood disorder; R79.1 Abnormal coagulation profile; L73.1 Pseudofolliculitis barbae; N75.0 Cyst of Bartholin's gland; R01.1 Cardiac murmur, unspecified; B35.3 Tinea pedis; R07.81 Pleurodynia
CPT/HCPCS: 36415; 80053; 81003; 81025; 85027; 85610; 86593; 87086; 87186; 93005; 93010